=== PATIENT | female | born 1945 | race Caucasian/White ===

== ENCOUNTER 2017-04-13 13:56 | Emergency (ER) | payer OTHER ==
[2017-04-13 14:05] VITALS: TEMP 97.9
--- NOTE | 2017-04-13 15:07 | EDPHY ---
H & P Stated Complaint: CHI - Hit Head on Coffee Table - Personal History Current Tetanus Diphtheria and Acellular Pertussis (TDAP): Yes - Medical/Surgical History Hx Asthma: No Hx Chronic Respiratory Disease: No Hx Diabetes: No Hx Cardiac Disease: No Hx Renal Disease: No Hx Cirrhosis: Yes Hx Alcoholism: Yes Hx HIV/AIDS: No Hx Splenectomy or Spleen Trauma: No Other PMH: Pelvis Fx, DVT, ETOH Abuse and Liver Problems - Social History Smoking Status: Never smoked <Khoa Beard - Last Filed: 04/13/17 15:06> Source: Patient <Logan Graff - Last Filed: 04/13/17 20:56> HPI/ROS: HPI CHIEF COMPLAINT: Head trauma, vomiting HISTORY OF PRESENT ILLNESS: This patient is 71-year-old female she has a history of alcoholism, she presents emergency room by private vehicle for nausea vomiting. Patient reports on Sunday she struck her head on the coffee table. Since then she has had nausea. Intermittent vomiting. Denies any headache or neck pain. Denies chest pain or shortness of breath. She hit the front left side of her head. Unclear if she had LOC. Currently she denies any chest pain or shortness of breath or headache or neck pain. Main complaint nausea. Past Medical History: Alcoholism Past Surgical History: No recent surgery Social History: Lives locally, daily alcohol use Family History: Noncontributory ROS REVIEW OF SYSTEMS: A comprehensive 10 point review of systems is otherwise negative aside from elements mentioned in the history of present illness. Exam Constitutional appears well nontoxic, triage nursing summary reviewed, vital signs reviewed, awake/alert. Eyes normal conjunctivae and sclera, EOMI, PERRLA. HENT head/neck: Left forehead hematoma, moist mucus membranes, no epistaxis, neck supple/ no meningismus, no raccoon eyes. Respiratory clear to auscultation bilaterally, normal breath sounds, no respiratory distress, no wheezing. Cardiovascular rate normal, regular rhythm, no murmur, no edema, distal pulses normal. Gastrointestinal soft, non-tender, no rebound, no guarding, normal bowel sounds, no distension, no pulsatile mass. Genitourinary no CVA tenderness. Musculoskeletal no midline vertebral tenderness, full range of motion, no calf swelling, no tenderness of extremities, no meningismus, good pulses, neurovascularly intact. Skin pink, warm, & dry, no rash, skin atraumatic. Neurologic awake, alert and oriented x 3, AAOx3, moves all 4 extremities equally, motor intact, sensory intact, CN II-XII intact, normal cerebellar, normal vision, normal speech. Psychiatric normal mood/affect. Heme/Lymph/Immune no lymphadenopathy. Differential Diagnosis: Includes but is not limited to in a particular order intracranial bleed, subdural, epidural, traumatic subarachnoid, skull fracture Medical Decision Making: Plan for this patient IV establishment IV fluid bolus , 1 L, 4 mg IV Zofran, CT scan head without contrast rule out intracranial bleed Re-evaluation: CT scan head without contrast negative for acute traumatic injury. No bleed. Called to me by DR. Cayden Maza: I did re-evaluate this patient this time she is resting comfortably no acute distress. She is feeling much better after IV fluids and IV potassium. Her urinalysis just resulted. This does show UTI. I have I have ordered a urine culture. 1 g of Rocephin will be given. Additionally I will allow her to go home with Zofran, Keflex for UTI, potassium supplements. I do recommend she refrain from drinking alcohol. Her ultrasound does not show an acute gallbladder does show gallstones but no evidence of acute cholecystitis. Patient is feeling better and would like to go home. (Logan Graff) Constitutional: Initial Vital Signs Temperature (C) 36.6 C 04/13/17 13:58 Heart Rate 81 04/13/17 13:58 Respiratory Rate 18 04/13/17 13:58 O2 Sat (%) 94 04/13/17 13:58 O2 Delivery Mode Room Air Allergies/Adverse Reactions: No Known Allergies Allergy (Unverified 04/13/17 14:05) Home Medications: Medication Instructions Recorded Cephalexin [Keflex (*)] 500 mg PO TID #21 cap 04/13/17 Ondansetron HCl [Zofran] 4 mg PO Q4-6PRN PRN #10 tablet 04/13/17 Potassium Chloride [Klor-Con] 20 meq PO DAILY #3 packet 04/13/17 - Diagnostics Imaging Results: Imaging Impressions Head CT 04/13/17 15:13 Impression: 1. Cerebrovascular atherosclerosis. 2. No epidural or subdural hematoma. 3. No hemorrhage or mass effect. Findings and recommendations discussed with Emergency Department physician, Logan Graff MD, at 1606 hour, 04/13/2017. Final report concurs with initial preliminary interpretation. Abdomen Ultrasound 04/13/17 16:48 Impression: Cholelithiasis, without evidence for cholecystitis. Results called and discussed with Logan Graff M.D., on April 13, 2017 at 1740. - Data Points Laboratory Results: Laboratory Results 04/13/17 15:30 04/13/17 20:05 04/13/17 04/13/17 04/13/17 20:05 18:43 15:30 WBC RBC Hgb Hct MCV MCH MCHC RDW Plt Count MPV Neut % (Auto) Lymph % (Auto) [place] % (Auto) Eos % (Auto) Baso % (Auto) Nucleat RBC Rel Count Absolute Neuts (auto) Absolute Lymphs (auto) Absolute Monos (auto) Absolute Eos (auto) Absolute Basos (auto) Absolute Nucleated RBC Immature Gran % Immature Gran # Sodium 141 mEq/L mEq/L 138 mEq/L mEq/L (135-145) (135-145) Potassium 3.5 mEq/L mEq/L 2.9 mEq/L L mEq/L (3.5-5.2) (3.5-5.2) Chloride 102 mEq/L mEq/L 96 mEq/L L mEq/L (97-110) (97-110) Carbon Dioxide 29 mEq/l mEq/l 31 mEq/l mEq/l (22-31) (22-31) Anion Gap 10 mEq/L mEq/L 11 mEq/L mEq/L (8-16) (8-16) BUN 11 mg/dL mg/dL 13 mg/dL mg/dL (7-23) (7-23) Creatinine 0.6 mg/dL mg/dL 0.6 mg/dL mg/dL (0.6-1.0) (0.6-1.0) Estimated GFR > 60 > 60 Glucose 106 mg/dL H mg/dL 115 mg/dL H mg/dL (70-100) (70-100) Calcium 9.0 mg/dL mg/dL 9.4 mg/dL mg/dL (8.5-10.4) (8.5-10.4) Total Bilirubin 5.6 mg/dL H mg/dL (0.1-1.4) Conjugated Bilirubin 1.1 mg/dL H mg/dL (0.0-0.5) Unconjugated Bilirubin 4.5 mg/dL H mg/dL (0.0-1.1) AST 86 IU/L H IU/L (14-46) ALT 40 IU/L IU/L (9-52) Alkaline Phosphatase 82 IU/L IU/L (38-126) Total Protein 6.1 g/dL L g/dL (6.3-8.2) Albumin 3.5 g/dL g/dL (3.5-5.0) Lipase 111 IU/L IU/L (23-300) Urine Color JAYDEN Urine Appearance HAZY Urine pH 6.0 (5.0-7.5) Ur Specific [place] 1.028 (1.002-1.030) Urine Protein 2+ H (NEGATIVE) Urine Ketones TRACE H (NEGATIVE) Urine Blood 1+ H (NEGATIVE) Urine Nitrate NEGATIVE (NEGATIVE) Urine Bilirubin NEGATIVE (NEGATIVE) Urine Urobilinogen 4.0 EU H EU (0.2-1.0) Ur Leukocyte Esterase TRACE H (NEGATIVE) Urine RBC 25-50 /hpf H /hpf (0-3) Urine WBC 15-25 /hpf H /hpf (0-3) Ur Epithelial Cells 2+ /lpf H /lpf (NONE-1+) Urine Mucus 2+ /lpf H /lpf (NONE-1+) Urine Glucose NEGATIVE (NEGATIVE) 04/13/17 15:30 WBC 5.13 10^3/uL 10^3/uL (3.80-9.50) RBC 4.18 10^6/uL 10^6/uL (4.18-5.33) Hgb 13.6 g/dL g/dL (12.6-16.3) Hct 37.9 % L % (38.0-47.0) MCV 90.7 fL fL (81.5-99.8) MCH 32.5 pg pg (27.9-34.1) MCHC 35.9 g/dL g/dL (32.4-36.7) RDW 14.8 % % (11.5-15.2) Plt Count 80 10^3/uL L 10^3/uL (150-400) MPV 10.7 fL fL (8.7-11.7) Neut % (Auto) 56.1 % % (39.3-74.2) Lymph % (Auto) 31.2 % % (15.0-45.0) Bennett % (Auto) 11.5 % % (4.5-13.0) Eos % (Auto) 0.4 % L % (0.6-7.6) Baso % (Auto) 0.6 % % (0.3-1.7) Nucleat RBC Rel Count 0.0 % % (0.0-0.2) Absolute Neuts (auto) 2.88 10^3/uL 10^3/uL (1.70-6.50) Absolute Lymphs (auto) 1.60 10^3/uL 10^3/uL (1.00-3.00) Absolute Monos (auto) 0.59 10^3/uL 10^3/uL (0.30-0.80) Absolute Eos (auto) 0.02 10^3/uL L 10^3/uL (0.03-0.40) Absolute Basos (auto) 0.03 10^3/uL 10^3/uL (0.02-0.10) Absolute Nucleated RBC 0.00 10^3/uL 10^3/uL (0-0.01) Immature Gran % 0.2 % % (0.0-1.1) Immature Gran # 0.01 10^3/uL 10^3/uL (0.00-0.10) Sodium Potassium Chloride Carbon Dioxide Anion Gap BUN Creatinine Estimated GFR Glucose Calcium Total Bilirubin Conjugated Bilirubin Unconjugated Bilirubin AST ALT Alkaline Phosphatase Total Protein Albumin Lipase Urine Color Urine Appearance Urine pH Ur Specific [place] Urine Protein Urine Ketones Urine Blood Urine Nitrate Urine Bilirubin Urine Urobilinogen Ur Leukocyte Esterase Urine RBC Urine WBC Ur Epithelial Cells Urine Mucus Urine Glucose Medications Given: Discontinued Medications Sodium Chloride (Ns) 1,000 mls @ 0 mls/hr IV EDNOW ONE; Wide Open PRN Reason: Protocol Stop: 04/13/17 15:14 Last Admin: 04/13/17 15:28 Dose: 1,000 mls Potassium Chloride (Potassium Cl 20 Meq (Premix)) 100 mls @ 50 mls/hr IV EDNOW ONE Stop: 04/13/17 18:04 Last Admin: 01/19/18 16:23 Dose: 100 mls Ceftriaxone Sodium 1 gm/ (Sterile Water) 10 mls @ 150 mls/hr IV EDNOW ONE PRN Reason: Protocol Stop: 04/13/17 19:48 Last Admin: 04/13/17 20:38 Dose: 10 mls Ondansetron HCl (Zofran) 4 mg IVP EDNOW ONE Stop: 04/13/17 15:14 Last Admin: 04/13/17 15:29 Dose: 4 mg Potassium Chloride (Klor Packets) 40 meq PO EDNOW ONE Stop: 04/13/17 16:06 Last Admin: 04/13/17 16:21 Dose: 40 meq Departure <Khoa Beard - Last Filed: 04/13/17 15:06> <Logan Graff - Last Filed: 04/13/17 20:56> - Departure Disposition: Home, Routine, Self-Care Clinical Impression: Hypokalemia Vomiting Qualifiers: Vomiting type: unspecified Vomiting Intractability: non-intractable Nausea presence: with nausea Qualified Code(s): R11.2 - Nausea with vomiting, unspecified Head injury Qualifiers: Encounter type: initial encounter Qualified Code(s): S09.90XA - Unspecified injury of head, initial encounter UTI (urinary tract infection) Qualifiers: Urinary tract infection type: acute cystitis Hematuria presence: with hematuria Qualified Code(s): N30.01 - Acute cystitis with hematuria Condition: Good Instructions: Concussion (ED), Head Injury (ED), Acute Nausea and Vomiting (ED) Additional Instructions: 1. [place] diet next 24-48 hours. 2. Stay well-hydrated. 3. Zofran for nausea. 4. Your potassium was slightly low. Take supplemental potassium for the next few days. Prescription provided. 5. Return emergency room if you have worsening symptoms questions or concerns. Referrals: Greg Hendricks MD [Primary Care Provider] - As per Instructions Prescriptions: Cephalexin [Keflex (*)] 500 mg PO TID #21 cap Ondansetron HCl [Zofran] 4 mg PO Q4-6PRN PRN #10 tablet PRN Reason: Nausea/Vomiting, Use 1st Potassium Chloride [Klor-Con] 20 meq PO DAILY #3 packet
[2017-04-13] MEDS ORDERED: ONDANSETRON 4 MG/2 ML VIAL IVP ONE (15:13)
[2017-04-13] MEDS ORDERED: NS 1,000 ML IV ONE (15:13)
[2017-04-13 15:40] LABS: PLATELET COUNT 80 10^3/uL (150-400)
[2017-04-13] MEDS ORDERED: POTASSIUM Cl (KCl) 100 ML IV ONE (16:05)
[2017-04-13] MEDS ORDERED: POTASSIUM CL 20 MEQ PKT PO ONE (16:05)
--- NOTE | 2017-04-13 17:07 | ASMTCAGE ---
CAGE Do you feel you ought to Answers: Yes cut down on your drinking or drug use? Do people annoy you by Answers: No criticizing your drinking or drug use? Do you feel guilty about Answers: Yes your drinking or drug use? Do you drink or use drugs Answers: Yes first thing in the morning ([employer])? Date Signed: 04/13/2017 05:07 PM Electronically Signed By:Sheldon Gonzales LCSW
--- NOTE | 2017-04-13 17:10 | ASMTCMCOM ---
CM Note CM Note Notes: Pt seen as result of CAGE. Pt was cooperative and friendly. She stated that she recently completed 90 days of sobriety after treatment at [facility]. She went on an alcohol binge on Sunday the and Sunday the . She indicated that she has a therapist she sees once a week and her doctor is working on addressing her anxiety medications. She reported that her anxiety is very high. Discharge status unknown at this time. Date Signed: 04/13/2017 05:10 PM Electronically Signed By:Sheldon Gonzales LCSW
[2017-04-13] MEDS ORDERED: cefTRIAXone 1 GM in STERILE WATER INJ 10 ML IV ONE (19:45)
[2017-04-13 20:42] VITALS: BP 152/100; PULSE 77; RESP 16; O2SAT 93
== END 2017-04-13 21:07 | disposition home or self-care (01) ==
DX: S09.90XA Unspecified injury of head, initial encounter (principal); E87.6 Hypokalemia; N30.01 Acute cystitis with hematuria; B96.89 Other specified bacterial agents as the cause of diseases classified elsewhere; E86.9 Volume depletion, unspecified; W22.09XA Striking against other stationary object, initial encounter; Y99.8 Other external cause status
CPT/HCPCS: 96374; J0696

== ENCOUNTER 2017-04-28 12:54 | Emergency (ER) | payer OTHER ==
[2017-04-28 13:05] VITALS: TEMP 98.1
[2017-04-28] MEDS ORDERED: NS 1,000 ML IV ONE (13:31)
--- NOTE | 2017-04-28 13:35 | EDPHY ---
H & P Stated Complaint: head inj 04/13 cat scan neg continued sob/nausea/shaky/confused Time Seen by Provider: 04/28/17 13:07 HPI/ROS: Chief Complaint: Confusion, fatigue HPI: A 71-year-old woman presenting with intermittent confusion fatigue after hitting her head on the of this month. Patient was seen 2 days after the injury here and had a CT scan of the head which was negative. Since that time she has been having some waxing and waning confusion with some nausea and general malaise. Her son went to pick her up today and noted that she seemed quite confused. She does have a long history of alcohol use and does admit that she has been drinking. Last drink was 6 o'clock this morning when she drank rum. She states she does not drink every day but does not recall if she drank yesterday and also does not recall if she drank the day before that. She is currently on disability from her work secondary to her head injury. She went to Urgent Care today and was sent here for further evaluation. She has a mild headache. No vision or hearing changes. Intermittent loss of memory and which she does not recall some recent days. No fevers or chills. No cough. No abdominal pain. No urinary urgency or frequency. ROS: 10 point Review of Systems is negative except as noted in the HPI. PMH: Alcoholism Social History: No smoking, history of heavy alcohol use Family History: non-contributory Physical Exam: Gen: Awake, Alert, No Distress HEENT: Nose: no rhinorrhea Eyes: PERRLA, EOMI Mouth: Moist mucosa dry mucosa Neck: Supple, no JVD Chest: nontender, lungs clear to auscultation Heart: S1, S2 normal, no murmur Abd: Soft, non-tender, no guarding Back: no CVA tenderness, no midline tenderness Ext: no edema, non-tender Skin: no rash Neuro: CN II-XII intact, Sensation grossly intact, Strength 5/5 in bilateral upper and lower extremities - Personal History Current Tetanus/Diphtheria Vaccine: Yes - Medical/Surgical History Hx Asthma: No Hx Chronic Respiratory Disease: No Hx Diabetes: No Hx Cardiac Disease: No Hx Renal Disease: No Hx Cirrhosis: Yes Hx Alcoholism: Yes Hx HIV/AIDS: No Hx Splenectomy or Spleen Trauma: No Other PMH: Pelvis Fx, DVT, ETOH Abuse and Liver Problems - Social History Smoking Status: Never smoked Constitutional: Initial Vital Signs Temperature (C) 36.7 C 04/28/17 13:01 Heart Rate 76 04/28/17 13:01 Respiratory Rate 18 04/28/17 13:01 Blood Pressure 159/77 H 04/28/17 13:01 O2 Sat (%) 96 04/28/17 13:01 O2 Delivery Mode Room Air Allergies/Adverse Reactions: No Known Allergies Allergy (Verified 04/28/17 13:01) Home Medications: Medication Instructions Recorded NK [No Known Home Meds] 04/28/17 Medical Decision Making ED Course/Re-evaluation: 71-year-old woman presenting with confusion. She did have a head injury 2 weeks ago after falling hitting or hit her coffee table however she had a normal CT scan 2 days after the injury. Her symptoms have been waxing waning in persistent. She has continued drink alcohol and she has an alcohol level 175 here. Given that 2 days post range she had a normal CT scan I think it is extremely unlikely that she has a developing intracranial bleed or mass effect. Symptoms are more likely secondary to her chronic alcohol use and a possible Wernicke encephalopathy. The patient has struggled with sobriety and has been in rehab facilities multiple times in the past. She does have an elevation of her bilirubin which was up 2 days on her previous visit but since went down again. I have also noted that in 2008 she had an admission for liver failure at that time secondary to her chronic alcohol use. She is not particularly jaundiced or tear today. She is intoxicated which is contributing to her confusion. There is no obvious source of infection. Urinalysis is unremarkable. I have had a long talk with both her and her son that I think that her symptoms are possibly post concussive but more likely can be attributed to her chronic alcohol abuse and a likely were neck is encephalopathy. Case management has been involved in provided her with resources for alcohol treatment. Patient will need follow-up as an outpatient with her primary care physician. No findings indicating admission to the hospital at this time. She will return for any concerns. - Data Points Laboratory Results: Laboratory Results 04/28/17 13:36 04/28/17 13:36 04/28/17 04/28/17 04/28/17 14:52 13:36 13:36 WBC 3.26 10^3/uL L 10^3/uL (3.80-9.50) RBC 4.26 10^6/uL 10^6/uL (4.18-5.33) Hgb 13.9 g/dL g/dL (12.6-16.3) Hct 39.1 % % (38.0-47.0) MCV 91.8 fL fL (81.5-99.8) MCH 32.6 pg pg (27.9-34.1) MCHC 35.5 g/dL g/dL (32.4-36.7) RDW 15.0 % % (11.5-15.2) Plt Count 76 10^3/uL L 10^3/uL (150-400) MPV 10.4 fL fL (8.7-11.7) Neut % (Auto) 54.0 % % (39.3-74.2) Lymph % (Auto) 36.2 % % (15.0-45.0) [place] % (Auto) 7.4 % % (4.5-13.0) Eos % (Auto) 0.6 % % (0.6-7.6) Baso % (Auto) 0.9 % % (0.3-1.7) Nucleat RBC Rel Count 0.0 % % (0.0-0.2) Absolute Neuts (auto) 1.76 10^3/uL 10^3/uL (1.70-6.50) Absolute Lymphs (auto) 1.18 10^3/uL 10^3/uL (1.00-3.00) Absolute Monos (auto) 0.24 10^3/uL L 10^3/uL (0.30-0.80) Absolute Eos (auto) 0.02 10^3/uL L 10^3/uL (0.03-0.40) Absolute Basos (auto) 0.03 10^3/uL 10^3/uL (0.02-0.10) Absolute Nucleated RBC 0.00 10^3/uL 10^3/uL (0-0.01) Immature Gran % 0.9 % % (0.0-1.1) Immature Gran # 0.03 10^3/uL 10^3/uL (0.00-0.10) Sodium 145 mEq/L mEq/L (135-145) Potassium 3.7 mEq/L mEq/L (3.5-5.2) Chloride 104 mEq/L mEq/L (97-110) Carbon Dioxide 23 mEq/l mEq/l (22-31) Anion Gap 18 mEq/L H mEq/L (8-16) BUN 9 mg/dL mg/dL (7-23) Creatinine 0.5 mg/dL L mg/dL (0.6-1.0) Estimated GFR > 60 Glucose 84 mg/dL mg/dL (70-100) Calcium 9.5 mg/dL mg/dL (8.5-10.4) Total Bilirubin 4.1 mg/dL H mg/dL (0.1-1.4) Conjugated Bilirubin 0.7 mg/dL H mg/dL (0.0-0.5) Unconjugated Bilirubin 3.4 mg/dL H mg/dL (0.0-1.1) AST 63 IU/L H IU/L (14-46) ALT 42 IU/L IU/L (9-52) Alkaline Phosphatase 100 IU/L IU/L (38-126) Total Protein 6.1 g/dL L g/dL (6.3-8.2) Albumin 3.7 g/dL g/dL (3.5-5.0) Urine Color Pending Urine Appearance Pending Urine pH Pending Ur Specific [place] Pending Urine Protein Pending Urine Ketones Pending Urine Blood Pending Urine Nitrate Pending Urine Bilirubin Pending Urine Urobilinogen Pending Ur Leukocyte Esterase Pending Urine Glucose Pending Ethyl Alcohol 175 mg/dL H mg/dL (0-10) Medications Given: Discontinued Medications Sodium Chloride (Ns) 1,000 mls @ 0 mls/hr IV ONCE ONE; Wide Open PRN Reason: Protocol Stop: 04/28/17 13:32 Last Admin: 04/28/17 13:43 Dose: 1,000 mls Departure - Departure Disposition: Home, Routine, Self-Care Clinical Impression: Confusion, Alcohol dependence, Wernicke encephalopathy Condition: Good Instructions: Alcohol Dependence (ED), Encephalopathy (DC) Additional Instructions: Please seek help to stop drinking alcohol. Follow up with primary care physician in 2-3 days for further evaluation. Return emergency department for increasing fever, worsening confusion, uncontrolled nausea vomiting, or any other concerns. Referrals: Greg Hendricks MD [Primary Care Provider] - As per Instructions
[2017-04-28 13:49] LABS: PLATELET COUNT 76 10^3/uL (150-400)
--- NOTE | 2017-04-28 14:28 | ASMTLACE ---
SARAH Comorbidities - select Answers: History of falls all that apply Moderate or severe liver or renal disease # of Emergency department Answers: 1-2 visits in the last 6 months Social determinants Answers: History of substance abuse (ETHO, street drugs, prescription drugs, etc.) Score: 11 Date Signed: 04/28/2017 02:28 PM Electronically Signed By:Meaghan Ricketts RN
[2017-04-28 14:42] VITALS: BP 145/82; PULSE 80; RESP 15; O2SAT 92
--- NOTE | 2017-04-28 14:43 | ASMTCMCOM ---
CM Note TORIBIO Note Notes: Chart review and met with patient who presents to the ER today with her adult son. patient C/O confusion and ETOH relapse. History of cirrhosis and alcoholism Patient states that she went to [facility] IP rehabilitation in October and had close to 90 days of sobriety before relapsing in February. Patient was seen in this ER on 04/13/17 after falling and hitting her head on a coffee table. Today, she tells me her confusion and memory issues are concerning to her. When asked what she thinks may help with that she states, "I should stop drinking". I spent time with patient discussing what was "working" for her during her period of sobriety following her IP stay at [facility]. Patient states that she was going to AA meetings daily, had a therapist that she saw on a regular basis, and was exercising. We talked about patient's history of liver disease and her confusion being related-metabolism of alcohol. Patient does verbalize understanding of this. I have asked her if she would like to go to "detox" or consider returning to [facility]. She denies desire for this. "I just don't want to feel like this". I have encouraged patient to stop drinking, get to an AA meeting, reach out to her counselor (patient tells me she can contact her on the weekend), and to follow up with her PCP, Dr. Cassie Hendricks at [facility] . I have left a VM with Dr. Hendricks for follow up and care coordination Date Signed: 04/28/2017 02:42 PM Electronically Signed By:Meaghan Ricketts RN
== END 2017-04-28 15:43 | disposition home or self-care (01) ==
PROC: 3E0337Z Introduction of Electrolytic and Water Balance Substance into Peripheral Vein, Percutaneous Approach (ICD-10-PCS; principal; 2017-04-28)
DX: R41.0 Disorientation, unspecified (principal); F10.229 Alcohol dependence with intoxication, unspecified; E51.2 Wernicke's encephalopathy; E86.9 Volume depletion, unspecified
CPT/HCPCS: G0480

== ENCOUNTER 2017-08-07 16:28 | Emergency (ER) | payer OTHER ==
[2017-08-07] MEDS ORDERED: NS 1,000 ML IV ONE (16:47)
[2017-08-07] MEDS ORDERED: chlordiazePOXIDE 25 MG CAP PO ONE (16:48)
[2017-08-07] MEDS ORDERED: LORazepam 1 MG TAB PO ONE (16:48)
[2017-08-07] MEDS ORDERED: ONDANSETRON 4 MG/2 ML VIAL IVP ONE (16:49)
--- NOTE | 2017-08-07 16:52 | EDPHY ---
H & P Stated Complaint: detox from ETOH Time Seen by Provider: 08/07/17 16:48 HPI/ROS: HPI: This is a 72-year-old female who presents with Chief Complaint: Alcohol withdrawal Location: body Quality: alcohol withdrawal Duration:2 days Signs and Symptoms: no fever, + nausea, + vomiting, no hematemesis, no blood in stool, no abdominal bloating, no diarrhea, no back pain, no urinary symptoms, no testicular/groin pain, no indigestion, no chest pain, no shortness of breath Timing: worsening Severity: moderate Context: Patient presents accompanied by her AA sponsor asking for symptomatic care as she is going through alcohol withdrawal. She reports that she feels tremulous and anxious accompanied by nausea and intermittent vomiting. Patient reports that she has been sober for 90 days in the recent past. She was recently admitted for inpatient detox November-December of last year. Her last drink was Sunday evening. She normally drinks 4-5 gin drinks daily. Patient reports that she has never had alcohol withdrawal seizures. After discussing the patient's options with her and her AA sponsor, patient is willing to be discharged to the [facility] for further detox and rehab. She denies any suicidal ideation, homicidal ideation, hallucinations. She has no abdominal pain/fever/ urinary symptoms. No history of abdominal surgery. Modifying Factors: None Comment: ROS: see HPI Constitutional: No fever, no chills, no weight loss Eyes: No blurred vision Respiratory: No shortness of breath, no cough Cardiovascular: No chest pain, no palpitations Gastrointestinal: + nausea, + vomiting, no diarrhea, no hematemesis, no blood in stool Genitourinary: No dysuria, no blood in urine Extremities: No myalgias, no edema Neurologic: No weakness, no numbness Skin: No rashes, no petechiae Hematologic: No bruising, no bleeding MEDICAL/SURGICAL/SOCIAL HISTORY: Medical history: Pelvis Fx, DVT, ETOH Abuse and Liver Problems, anxiety and depression Surgical history: Denies Social history: Retired. Lives alone. Family history noncontributory. CONSTITUTIONAL: Petite elderly polite and cooperative white female, awake and alert, no obvious distress HEENT: Atraumatic and normocephalic, PERRL, EOMI. Nares patent; no rhinorrhea; no nasal mucosal edema. Tympanic membranes clear. Oropharynx clear, no exudate and moist pink mucosa. Airway patent. No lymphadenopathy. No meningismus. Cardiovascular: Normal S1/S2, regular rate, regular rhythm, without murmur rub or gallop. PULMONARY/CHEST: Symmetrical and nontender. Clear to auscultation bilaterally. Good air movement. No accessory muscle usage. ABDOMEN: Soft, nondistended, nontender, no rebound, no guarding, no peritoneal signs, no masses or organomegaly. No CVAT. EXTREMITIES: 2/2 pulses, strength 5/5, no deformities, no clubbing, no cyanosis or edema. NEUROLOGICAL: no focal neuro deficits. GCS 15. Hand tremors noted. SKIN: Warm and dry, no erythema. no rash. Good capillary refill. Source: Patient, Family (AA sponsor) Exam Limitations: No limitations - Personal History Current Tetanus/Diphtheria Vaccine: Unsure Current Tetanus Diphtheria and Acellular Pertussis (TDAP): Unsure - Medical/Surgical History Hx Asthma: No Hx Chronic Respiratory Disease: No Hx Diabetes: No Hx Cardiac Disease: No Hx Renal Disease: No Hx Cirrhosis: Yes Hx Alcoholism: Yes Hx HIV/AIDS: No Hx Splenectomy or Spleen Trauma: No Other PMH: Pelvis Fx, DVT, ETOH Abuse and Liver Problems - Social History Smoking Status: Never smoked Constitutional: Initial Vital Signs Temperature (C) 36.8 C 08/07/17 16:38 Heart Rate 80 08/07/17 16:38 Respiratory Rate 16 08/07/17 16:38 Blood Pressure 143/100 H 08/07/17 16:38 O2 Sat (%) 92 08/07/17 16:38 O2 Delivery Mode Room Air Allergies/Adverse Reactions: No Known Allergies Allergy (Verified 08/07/17 16:37) Home Medications: Medication Instructions Recorded Multivitamin (*) 08/07/17 Pristiq 08/07/17 Medical Decision Making ED Course/Re-evaluation: Vital signs stable. CIWA upon arrival=16 Patient will be given 1 L normal saline, IV Zofran, IV Ativan 1 mg, p.o. Librium 50 mg Abdomen is soft and nontender. Doubt surgical process. Does not meet M1 hold or Detainer criteria. 181: Reassessed patient who reports that she feels considerably improved. She does note that the Ativan made her feel"a bit loopy." She is ambulatory without assistance. Repeat CIWA=5. Her AA sponsor is at her bedside. Plan is for her to be discharged to the [facility] with Librium prepack. No signs of alcohol withdrawal seizures/delirium Vital signs improved at discharge. This patient was seen under the supervision of my secondary supervising physician. I evaluated care for this patient independently. Differential Diagnosis: Differential diagnosis includes but is not limited to electrolyte imbalance, alcohol withdrawal, alcohol delirium, delirium tremens. - Data Points Medications Given: Discontinued Medications Chlordiazepoxide (Librium 25 Mg Prepack#6) 1 btl TAKEHOME EDNOW ONE Stop: 08/07/17 18:17 Last Admin: 08/07/17 18:29 Dose: 1 btl Chlordiazepoxide HCl (Librium) 50 mg PO EDNOW ONE Stop: 08/07/17 16:49 Last Admin: 08/07/17 17:09 Dose: 50 mg Sodium Chloride (Ns) 1,000 mls @ 0 mls/hr IV EDNOW ONE; Wide Open PRN Reason: Protocol Stop: 08/07/17 16:48 Last Admin: 08/07/17 17:03 Dose: 1,000 mls Lorazepam (Ativan) 1 mg PO EDNOW ONE Stop: 08/07/17 16:49 Last Admin: 08/07/17 17:09 Dose: Not Given Lorazepam (Ativan Injection) 1 mg IVP EDNOW ONE Stop: 08/07/17 17:09 Last Admin: 08/07/17 17:09 Dose: 1 mg Ondansetron HCl (Zofran) 4 mg IVP EDNOW ONE Stop: 08/07/17 16:50 Last Admin: 08/07/17 17:03 Dose: 4 mg Departure - Departure Disposition: Home, Routine, Self-Care Clinical Impression: Alcohol abuse Alcohol withdrawal Qualifiers: Complication of substance-induced condition: uncomplicated Qualified Code(s): F10.230 - Alcohol dependence with withdrawal, uncomplicated Condition: Good Instructions: Chlordiazepoxide (By mouth), Alcohol Withdrawal (ED), Alcohol Dependence (ED) Additional Instructions: [facility] You will be given Librium to take to control your alcohol withdrawal symptoms. Please refrain from drinking alcohol. Referrals: [facility] Detox 24 Hours [Outside] - As per Instructions Cassie Sweeney [Registered Nurse] - Follow Up Only If Needed
[2017-08-07] MEDS ORDERED: LORazepam 2 MG/ML INJ ONE (17:08)
[2017-08-07] MEDS ORDERED: LORazepam 2 MG/ML INJ IVP ONE (17:08)
[2017-08-07] MEDS ORDERED: CHLORDIAZEPOXIDE 25MG PREPK#6 BTL TAKEHOME ONE (18:16)
[2017-08-07 18:18] VITALS: BP 121/83
== END 2017-08-07 18:35 | disposition home or self-care (01) ==
DX: F10.230 Alcohol dependence with withdrawal, uncomplicated (principal); E86.9 Volume depletion, unspecified
CPT/HCPCS: 96374; J2060; J2405

== ENCOUNTER 2018-01-10 14:07 | Inpatient (IN) | payer OTHER ==
--- NOTE | 2018-01-10 14:59 | EDPHY ---
HPI/HX/ROS/PE/MDM Narrative: CHIEF COMPLAINT: Nausea, vomiting, alcohol withdrawal. HISTORY OF PRESENT ILLNESS: This patient is a 72 year old female with history of alcoholism and cirrhosis. She complains of nausea and vomiting ongoing since 8am on Sunday morning. On Sunday and Sunday, she was feeling anxious and manic which often precedes symptoms of alcohol withdrawal, and she believes her symptoms over the past two days are due to this. Her last drink was Sunday. She had stopped going to AA and decided to stop drinking again when she ran out of alcohol at home. Since Sunday, she has been vomiting frequently. She is tremulous. She denies hematemesis. She denies seizure activity. She denies history of pancreatitis or alcoholic ketoacidosis. She states her therapist wants to help her get to [facility] [facility], but she is unsure whether this is the best place for her at this time. No fever, chills, chest pain, shortness of breath, palpitations, diarrhea, urinary complaints, headache, lightheadedness. REVIEW OF SYSTEMS: A comprehensive 10 system review of systems is otherwise negative aside from elements mentioned in the history of present illness and medical decision making. PAST MEDICAL HISTORY: Alcoholic cirrhosis. History of DVT. SOCIAL HISTORY: History of alcoholism. Nonsmoker. No illicit drug use. VITAL SIGNS: Reviewed by me. Hypertensive at triage. 171/115 during my interview. GENERAL: Well-developed, well-nourished, resting comfortably in no respiratory distress. HEENT: Atraumatic. Eyes: Scleral icterus, no injection. Mouth: dry mucous membranes, dry tongue. No erythema or lesions. Neck: supple with no adenopathy. LUNGS: Clear to auscultation bilaterally, no wheezes, rhonchi or rales. CARDIAC: Tachycardia, no rubs, murmurs or gallops. Appears to be sinus rhythm on the monitor. ABDOMEN: Soft, nontender, nondistended, bowel sounds normal. BACK: No CVA tenderness. EXTREMITIES: No trauma. No edema. Range of motion is normal throughout. NEURO: Alert and oriented, grossly nonfocal. SKIN: Spider hemangioma. Warm and dry, no rash. PSYCHIATRIC: Normal mentation, no agitation. Portions of this note were transcribed by a medical insurance biller. I personally performed a history, physical exam, medical decision making, and confirmed accuracy of information the transcribed note. ED Course: 72 y/o female with history of alcoholism and cirrhosis presents with nausea and vomiting. She is mildly tremulous on exam and has scleral icterus, dry mucous membranes. IV established. Plan for labs including CBC, chemistries, coag, liver , lipase, Mg. Patient received Ativan 1 mg bolus x2. This controlled her hypertension and tremors quite well. Heart rate trended downward into the 90s. LFTs elevated. K+ elevated. Plan for repeat chemistries following fluid administration. Patient looks quite well. She is no longer tremors. She is feeling better. She has not vomited while she is here. I will ask case management to intervene with respect to the patient's disposition. 18:05 Case management has consulted with the patient. Patient's sister is currently staying with her and is a nurse. The sister will come to pick the patient up. If the sister is comfortable, plan to d/c patient home with [facility] prepack. She agrees to discuss returning to [facility] with her therapist tomorrow. Patient requests Zofran as well for nausea relief. I will provide this as well. Patient is noted to becoming slightly more tachycardic. On the monitor she is somewhat irregular and has heart rate fluctuating from the upper 90s to low 110s. Repeat EKG ordered 12-LEAD EKG: Please see the full report in [facility]. My interpretation: Atrial fibrillation. Patient denies history of atrial fibrillation. She does have a pulmonary embolism in the past. Given her newly diagnosed atrial fibrillation in the setting of alcohol withdrawal, and significant alcohol cirrhosis with an INR of 1.5, patient will be admitted to the hospital for further stabilization. 18:51 Consulted with hospitalist service. Plan to admit for new onset afib. Dr. Manley accepts admission. MDM: Differential diagnoses for the patient's symptom complex was considered including but not limited to alcohol withdrawal, alcohol withdrawal seizures, benzodiazepine withdrawal, sinus tachycardia, arrhythmia, atrial fibrillation, atrial flutter, holiday heart, dehydration, cirrhosis. - Data Points Laboratory Results: Laboratory Results 01/10/18 15:10 01/10/18 17:41 01/10/18 01/10/18 01/10/18 17:41 17:40 15:20 WBC RBC Hgb Hct MCV MCH MCHC RDW Plt Count MPV Neut % (Auto) Lymph % (Auto) [place] % (Auto) Eos % (Auto) Baso % (Auto) Nucleat RBC Rel Count Absolute Neuts (auto) Absolute Lymphs (auto) Absolute Monos (auto) Absolute Eos (auto) Absolute Basos (auto) Absolute Nucleated RBC Immature Gran % Immature Gran # PT 18.5 SEC H SEC (12.0-15.0) INR 1.53 H (0.83-1.16) Sodium 138 mEq/L mEq/L (135-145) Potassium 3.4 mEq/L mEq/L (3.3-5.0) Chloride 101 mEq/L mEq/L (97-110) Carbon Dioxide 29 mEq/l mEq/l (22-31) Anion Gap 8 mEq/L mEq/L (6-14) BUN 19 mg/dL mg/dL (7-23) Creatinine 0.5 mg/dL L mg/dL (0.6-1.0) Estimated GFR > 60 Glucose 118 mg/dL H mg/dL (70-100) Calcium 7.9 mg/dL L mg/dL (8.5-10.4) Magnesium Total Bilirubin Conjugated Bilirubin Unconjugated Bilirubin AST ALT Alkaline Phosphatase Troponin I 0.014 ng/mL ng/mL (0.000-0.034) Total Protein Albumin Lipase Specimen Hemolysis 01/10/18 01/10/18 15:20 15:10 WBC 4.83 10^3/uL 10^3/uL (3.80-9.50) RBC 4.55 10^6/uL 10^6/uL (4.18-5.33) Hgb 15.2 g/dL g/dL (12.6-16.3) Hct 42.7 % % (38.0-47.0) MCV 93.8 fL fL (81.5-99.8) MCH 33.4 pg pg (27.9-34.1) MCHC 35.6 g/dL g/dL (32.4-36.7) RDW 14.2 % % (11.5-15.2) Plt Count 57 10^3/uL L 10^3/uL (150-400) MPV 11.0 fL fL (8.7-11.7) Neut % (Auto) 83.9 % H % (39.3-74.2) Lymph % (Auto) 9.1 % L % (15.0-45.0) [place] % (Auto) 6.0 % % (4.5-13.0) Eos % (Auto) 0.0 % L % (0.6-7.6) Baso % (Auto) 0.4 % % (0.3-1.7) Nucleat RBC Rel Count 0.4 % H % (0.0-0.2) Absolute Neuts (auto) 4.05 10^3/uL 10^3/uL (1.70-6.50) Absolute Lymphs (auto) 0.44 10^3/uL L 10^3/uL (1.00-3.00) Absolute Monos (auto) 0.29 10^3/uL L 10^3/uL (0.30-0.80) Absolute Eos (auto) 0.00 10^3/uL L 10^3/uL (0.03-0.40) Absolute Basos (auto) 0.02 10^3/uL 10^3/uL (0.02-0.10) Absolute Nucleated RBC 0.02 10^3/uL H 10^3/uL (0-0.01) Immature Gran % 0.6 % % (0.0-1.1) Immature Gran # 0.03 10^3/uL 10^3/uL (0.00-0.10) PT INR Sodium 137 mEq/L mEq/L (135-145) Potassium 6.0 mEq/L H mEq/L (3.3-5.0) Chloride 97 mEq/L mEq/L (97-110) Carbon Dioxide 29 mEq/l mEq/l (22-31) Anion Gap 11 mEq/L mEq/L (6-14) BUN 18 mg/dL mg/dL (7-23) Creatinine 0.5 mg/dL L mg/dL (0.6-1.0) Estimated GFR > 60 Glucose 129 mg/dL H mg/dL (70-100) Calcium 8.7 mg/dL mg/dL (8.5-10.4) Magnesium 1.3 mg/dL L mg/dL (1.6-2.3) Total Bilirubin 8.2 mg/dL H mg/dL (0.1-1.4) Conjugated Bilirubin 1.6 mg/dL H mg/dL (0.0-0.5) Unconjugated Bilirubin 6.6 mg/dL H mg/dL (0.0-1.1) AST 191 IU/L H IU/L (14-46) ALT 57 IU/L H IU/L (9-52) Alkaline Phosphatase 89 IU/L IU/L (38-126) Troponin I Total Protein 7.1 g/dL g/dL (6.3-8.2) Albumin 4.2 g/dL g/dL (3.5-5.0) Lipase 158 IU/L IU/L (23-300) Specimen Hemolysis 146 Medications Given: Discontinued Medications Chlordiazepoxide (Librium 25 Mg Prepack#6) 1 btl TAKEHOME EDNOW ONE Stop: 01/10/18 18:10 Last Admin: 01/10/18 18:51 Dose: 1 btl Chlordiazepoxide HCl (Librium) 25 mg PO EDNOW ONE Stop: 01/10/18 16:56 Last Admin: 01/10/18 17:08 Dose: 25 mg Sodium Chloride (Ns) 1,000 mls @ 0 mls/hr IV ONCE ONE; Wide Open PRN Reason: Protocol Stop: 01/10/18 15:17 Last Admin: 01/10/18 15:23 Dose: 1,000 mls Sodium Chloride (Ns) 500 mls @ 1,000 mls/hr IV EDNOW ONE PRN Reason: Protocol Stop: 01/10/18 17:26 Last Admin: 01/10/18 17:07 Dose: 500 mls Lorazepam (Ativan Injection) 1 mg IVP EDNOW ONE Stop: 01/10/18 15:17 Last Admin: 01/10/18 15:24 Dose: 1 mg Lorazepam (Ativan Injection) 1 mg IVP EDNOW ONE Stop: 01/10/18 16:04 Last Admin: 01/10/18 16:06 Dose: 1 mg Magnesium Oxide (Magnesium Oxide) 400 mg PO ONCE ONE Stop: 01/10/18 23:49 Last Admin: 01/11/18 00:30 Dose: 400 mg Ondansetron HCl (Zofran) 4 mg IVP EDNOW ONE Stop: 01/10/18 15:17 Last Admin: 01/10/18 15:24 Dose: 4 mg Ondansetron HCl (Zofran Odt 4 Mg Prepack#2) 1 btl SINDY FERNÁNDEZ ONE Stop: 01/10/18 18:10 Last Admin: 01/10/18 18:50 Dose: 1 btl General Time Seen by Provider: 01/10/18 14:54 Initial Vital Signs: Initial Vital Signs Temperature (C) 36.8 C 01/10/18 14:18 Heart Rate 116 H 01/10/18 14:18 Respiratory Rate 20 01/10/18 14:18 Blood Pressure 168/136 H 01/10/18 14:18 O2 Sat (%) 93 01/10/18 14:18 O2 Delivery Mode Room Air O2 (L/minute) 2 Allergies/Adverse Reactions: No Known Allergies Allergy (Verified 01/10/18 14:17) Home Medications: Medication Instructions Recorded Herbals/Supplements -Info Only 1 ea PO DAILY 01/10/18 Multivitamins [Multivitamin (*)] 1 each PO DAILY 01/10/18 Departure - Departure Disposition: [facility] Inpatient Acute Clinical Impression: New onset atrial fibrillation Alcohol withdrawal Qualifiers: Complication of substance-induced condition: uncomplicated Qualified Code(s): F10.230 - Alcohol dependence with withdrawal, uncomplicated Nausea & vomiting Qualifiers: Vomiting type: unspecified Vomiting Intractability: non-intractable Qualified Code(s): R11.2 - Nausea with vomiting, unspecified Condition: Fair Report Scribed for: Kenna Ramos Report Scribed by: Glendy Muñoz Date of Report: 01/10/18 Time of Report: 15:26
[2018-01-10] MEDS ORDERED: NS 1,000 ML IV ONE (15:16)
[2018-01-10] MEDS ORDERED: LORazepam 2 MG/ML INJ IVP ONE ×2 (15:16→16:03)
[2018-01-10] MEDS ORDERED: ONDANSETRON 4 MG/2 ML VIAL IVP ONE (15:16)
[2018-01-10 15:44] LABS: INR 1.53 (0.83-1.16); PROTIME(PATIENT) 18.5 SEC (12.0-15.0)
[2018-01-10 15:53] LABS: PLATELET COUNT 57 10^3/uL (150-400)
[2018-01-10] MEDS ORDERED: chlordiazePOXIDE 25 MG CAP PO ONE (16:55)
[2018-01-10] MEDS ORDERED: NS 500 ML IV ONE (16:57)
[2018-01-10] MEDS ORDERED: CHLORDIAZEPOXIDE 25MG PREPK#6 BTL TAKEHOME ONE (18:09)
[2018-01-10] MEDS ORDERED: ONDANSETRON 4MG PREPACK#2 BTL TAKEHOME ONE (18:09)
[2018-01-10] MEDS ORDERED: ONDANSETRON 4 MG/2 ML VIAL IVP PRN (19:02)
[2018-01-10] MEDS ORDERED: ONDANSETRON DISINTEGRATING 4 MG TAB PO PRN (19:02)
[2018-01-10] MEDS ORDERED: ACETAMINOPHEN 325 MG TAB PO PRN (19:02)
[2018-01-10] MEDS ORDERED: FLUMAZENIL 0.5 MG/5 ML MDV IVP PRN (19:04)
[2018-01-10] MEDS ORDERED: LORazepam 2 MG/ML INJ IVP PRN (19:04)
--- NOTE | 2018-01-10 22:13 | PDGENHP ---
History and Physical - Chief Complaint nausea, vomiting - History of Present Illness 72yo F with history of etoh abuse complicated by cirrhosis who presents with nausea and non-bloody vomiting for the last day (since sunday). This has been associated with anxiety and feelings of nelly which are typical of etoh withdrawal for her. She had been drinking 5 drinks of gin per day for the last 10 months or so. She couldn't afford to buy more and ran out on Sunday. She denies any history of withdrawal seizures. In the ED, she was given 2mg of IV ativan and some librium. Initial plan was to discharge to home but she developed atrial fibrillation and was continuing to withdraw so decision was made to admit. Case discussed with ED physician Kenna Ramos. History Information - Allergies/Home Medication List Allergies/Adverse Reactions: No Known Allergies Allergy (Verified 01/10/18 14:17) Home Medications: Herbals/Supplements -Info Only 1 ea PO DAILY 01/10/18 [Last Taken 01/10/18] Multivitamins [Multivitamin (*)] 1 each PO DAILY 01/10/18 [Last Taken 01/10/18] I have personally reviewed and updated: family history, medical history, social history, surgical history - Past Medical History Additional medical history: etoh abuse, cirrhosis of the liver, alcoholic hepatitis, DVT in lower extremity - Surgical History Reports: no pertinent surgical hx - Family History Positive for: non-pertinent - Social History Smoking Status: Never smoked Alcohol Use: Heavy (5 drinks of gin daily) Drug Use: None Additional social history: Lives alone in [facility] in [place] Review of Systems Review of Systems: ROS: 10pt was reviewed & negative except for what was stated in HPI & below Physical Exam Physical Exam: Temp Pulse Resp BP Pulse Ox 36.6 C 101 H 8 L 130/86 H 92 01/10/18 20:40 01/10/18 20:40 01/10/18 20:40 01/10/18 20:40 01/10/18 20:40 Constitutional: not in pain Eyes: PERRL, anicteric sclera, EOMI Ears, Nose, Mouth, Throat: moist mucous membranes, hearing normal, ears appear normal, no oral mucosal ulcers, other (tongue fasciculations) Cardiovascular: irregularly irregular, tachycardia, No JVD, No edema Respiratory: no respiratory distress, no rales or rhonchi, clear to auscultation Gastrointestinal: normoactive bowel sounds, soft, non-tender abdomen, no palpable masses Genitourinary: no bladder fullness, no bladder tenderness Skin: warm, normal color, no rashes or abrasions, no fluctuance, no induration, No mottled Musculoskeletal: full muscle strength, no muscle tenderness, normal joint ROM, no joint effusions Neurologic: AAOx3 Psychiatric: not encephalopathic, anxious Lab Data & Imaging Review 01/10/18 15:10 01/10/18 17:41 WBC 4.83 10^3/uL (3.80-9.50) 01/10/18 15:10 RBC 4.55 10^6/uL (4.18-5.33) 01/10/18 15:10 Hgb 15.2 g/dL (12.6-16.3) 01/10/18 15:10 Hct 42.7 % (38.0-47.0) 01/10/18 15:10 MCV 93.8 fL (81.5-99.8) 01/10/18 15:10 MCH 33.4 pg (27.9-34.1) 01/10/18 15:10 MCHC 35.6 g/dL (32.4-36.7) 01/10/18 15:10 RDW 14.2 % (11.5-15.2) 01/10/18 15:10 Plt Count 57 10^3/uL (150-400) L 01/10/18 15:10 MPV 11.0 fL (8.7-11.7) 01/10/18 15:10 Neut % (Auto) 83.9 % (39.3-74.2) H 01/10/18 15:10 Lymph % (Auto) 9.1 % (15.0-45.0) L 01/10/18 15:10 [place] % (Auto) 6.0 % (4.5-13.0) 01/10/18 15:10 Eos % (Auto) 0.0 % (0.6-7.6) L 01/10/18 15:10 Baso % (Auto) 0.4 % (0.3-1.7) 01/10/18 15:10 Nucleat RBC Rel Count 0.4 % (0.0-0.2) H 01/10/18 15:10 Absolute Neuts (auto) 4.05 10^3/uL (1.70-6.50) 01/10/18 15:10 Absolute Lymphs (auto) 0.44 10^3/uL (1.00-3.00) L 01/10/18 15:10 Absolute Monos (auto) 0.29 10^3/uL (0.30-0.80) L 01/10/18 15:10 Absolute Eos (auto) 0.00 10^3/uL (0.03-0.40) L 01/10/18 15:10 Absolute Basos (auto) 0.02 10^3/uL (0.02-0.10) 01/10/18 15:10 Absolute Nucleated RBC 0.02 10^3/uL (0-0.01) H 01/10/18 15:10 Immature Gran % 0.6 % (0.0-1.1) 01/10/18 15:10 Immature Gran # 0.03 10^3/uL (0.00-0.10) 01/10/18 15:10 PT 18.5 SEC (12.0-15.0) H 01/10/18 15:20 INR 1.53 (0.83-1.16) H 01/10/18 15:20 Sodium 138 mEq/L (135-145) 01/10/18 17:41 Potassium 3.4 mEq/L (3.3-5.0) 01/10/18 17:41 Chloride 101 mEq/L (97-110) 01/10/18 17:41 Carbon Dioxide 29 mEq/l (22-31) 01/10/18 17:41 Anion Gap 8 mEq/L (6-14) 01/10/18 17:41 BUN 19 mg/dL (7-23) 01/10/18 17:41 Creatinine 0.5 mg/dL (0.6-1.0) L 01/10/18 17:41 Estimated GFR > 60 01/10/18 17:41 Glucose 118 mg/dL (70-100) H 01/10/18 17:41 Calcium 7.9 mg/dL (8.5-10.4) L 01/10/18 17:41 Magnesium 1.3 mg/dL (1.6-2.3) L 01/10/18 15:20 Total Bilirubin 8.2 mg/dL (0.1-1.4) H 01/10/18 15:20 Conjugated Bilirubin 1.6 mg/dL (0.0-0.5) H 01/10/18 15:20 Unconjugated Bilirubin 6.6 mg/dL (0.0-1.1) H 01/10/18 15:20 AST 191 IU/L (14-46) H 01/10/18 15:20 ALT 57 IU/L (9-52) H 01/10/18 15:20 Alkaline Phosphatase 89 IU/L (38-126) 01/10/18 15:20 Troponin I 0.014 ng/mL (0.000-0.034) 01/10/18 17:40 Total Protein 7.1 g/dL (6.3-8.2) 01/10/18 15:20 Albumin 4.2 g/dL (3.5-5.0) 01/10/18 15:20 Lipase 158 IU/L (23-300) 01/10/18 15:20 Specimen Hemolysis 146 01/10/18 15:20 Visualized and Interpreted EKG results: Yes EKG additional interpertation: ECG: afib, V rate in 90s, biphasic T waves in precordial leads, Q waves in inferior leads, non-specific intraventricular conduction delay, prolonged qtc (interpreted by me) Assessment & Plan Assessment: 72yo F with history of etoh abuse complicated by cirrhosis who presents with signs and symptoms of etoh withdrawal who is found to be in new onset atrial fibrillation. Plan: #EtOH withdrawal: Last drink on Sunday. No prior h/o withdrawal seizures. - CIWA protocol, thiamine/MV/folate #Atrial fibrillation: Started in ED. Likely precipitated by withdrawal. This is a new diagnosis for her as far as I can tell. She is currently asymptomatic with HR in the 90s and good BP. - Check TTE, TSH, trop, BNP - [id number] (2.2% risk of stroke/yr), HAS-BLED=3 (5.8% risk of major bleed ). Discussed with patient, will hold anticoagulation - Consider electrical cardioversion (has been in afib<48 hours) although unlikely to be helpful with ongoing withdrawal #EtOH abuse: Longest period of sobriety about 90 days. Was in AA but dropped out. - [employer] on resources #Alcoholic hepatitis: Elevated bilirubin and transaminases. DF score of 33.5 indicating possible benefit from steroids. - Pred 40mg qd, check L[place] score day 4 to measure response #Cirrhosis: Due to etoh. She has e/o liver dysfunction with thrombocytopenia, coagulopathy, elevated bili but is overall compensated. #Hyperkalemia: Hemolyzed. Repeat labs look ok. Diet: low Na VTE ppx: SCDs Code: full Dispo: Admit under observation
--- NOTE | 2018-01-10 23:06 | CPEKG ---
Test Reason : OPEN Blood Pressure : / mmHG Vent. Rate : 097 BPM Atrial Rate : 133 BPM P-R Int : 063 ms QRS Dur : 093 ms QT Int : 409 ms P-R-T Axes : 000 -52 -38 degrees QTc Int : 520 ms Atrial fibrillation Inferior infarct, old Prolonged QT interval Confirmed by Kenna Ramos ([id number] on 01/10/2018 11:06:33 PM Referred By: Confirmed By:Kenna Ramos
[2018-01-10] MEDS ORDERED: MAGNESIUM OXIDE 400 MG TAB PO ONE (23:48)
[2018-01-11] MEDS ORDERED: POTASSIUM CL 20 MEQ/15 ML UDCUP PO ONE (07:14)
[2018-01-11] MEDS ORDERED: MAGNESIUM OXIDE 400 MG TAB PO ONE (07:14)
--- NOTE | 2018-01-11 07:38 | HOSPPROG ---
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 Initial report that patient had received lovenox in the ED. Review of chart appears that this was cancelled. Discussed options with the patient regarding anticoagulation as well as risk/ benefits for no treatment, heparin gtt, and tx lovenox as unable to verify patient candidacy for possibility of newer anticoagulant options. Patient amenable to proceed with dose of lovenox. she states she was previously in a double blind study for anticoagulation (either warfarin or newer anticoagulant) 2/2 hx of DVT/PE but was never told which medication she had been given even after study. start with lovenox. continuation vs. changes as per day team. Objective: Vital Signs Temp Pulse Resp BP Pulse Ox 37.1 C 82 16 127/85 H 98 01/11/18 04:00 01/11/18 04:00 01/11/18 04:00 01/11/18 04:00 01/11/18 04:00 Laboratory Results 01/11/18 03:42 01/11/18 03:42 01/10/18 01/11/18 01/12/18 05:59 05:59 05:59 Intake Total 3000 Balance 3000 PT 18.5 SEC (12.0-15.0) H 01/10/18 15:20 INR 1.53 (0.83-1.16) H 01/10/18 15:20 ICD10 Worksheet Patient Problems: Problems Problem Status Onset Alcohol withdrawal Acute Nausea & vomiting Acute New onset atrial fibrillation Acute
[2018-01-11] MEDS ORDERED: ENOXAPARIN 60 MG/0.6 ML SYR SC SCH (09:00)
[2018-01-11] MEDS ORDERED: ENOXAPARIN 40 MG/0.4 ML SYR SC SCH (09:00)
[2018-01-11] MEDS: MULTIVITAMINS 1 EACH TAB PO SCH (09:21)
[2018-01-11] MEDS: FOLIC ACID 1 MG TAB PO SCH (09:21)
[2018-01-11] MEDS: predniSONE 20 MG TAB PO SCH (09:21)
[2018-01-11] MEDS ORDERED: PROTOCOL MAGNESIUM 1 DOSE IV PRN (10:13)
[2018-01-11] MEDS ORDERED: PROTOCOL POTASSIUM 1 DOSE MISC PRN (10:13)
[2018-01-11] MEDS ORDERED: PROTOCOL K PHOSPHATE 1 DOSE IV PRN (10:14)
--- NOTE | 2018-01-11 12:28 | ECHO ---
[email or web address] [address] [address] Main: [phone] Fax: Transthoracic Echocardiogram Name: ALEIDA PEARSON MR#: [id number] Study Date: 01/11/2018 Study Time: 09:59 AM Date of : 1945 Age: 72 year(s) Height: 160 cm (63 in.) Weight: 63.05 kg (139 lb.) BSA: 1.66 m2 Gender: Female Examination: Echo Indication: eval valves, ventricular function Image Quality: Adequate Contrast: Requested by: Lars Manley BP: 130 mmHg/88 mmHg Heart Rate: Rhythm: Atrial fibrillation Indication: eval valves, ventricular function Procedure Staff Lacquer Polisher: Nuzhat Montelongo [facility] Reading Physician: Geoffrey Nettles MD Requesting Provider: Conclusions: Borderline concentric LV hypertrophy. EF is 60 %. No regional wall motion abnormality. Normal RV function. Mild mitral valve leaflet calcification is present. Mild to moderate mitral regurgitation. No mitral stenosis is present. The aortic valve is tri-leaflet. Trivial-mild aortic valve stenosis. There is no significant aortic valve regurgitation. Mild tricuspid regurgitation is present. The pulmonary artery pressure is normal. There is no previous echocardiogram for comparison. Measurements: Chambers Valvular Assessment AV/MV Valvular Assessment TV/PV Normal Normal Normal Name Value Range Name Value Range Name Value Range Ao Jamee (2D): 2.9 cm (1.4 cm-2.6 AV Vmax: 2.19 m/s (1 m/s-1.7 TR Vmax: 2.54 mm/s ( - ) cm) m/s) TR PGmax: 26 mmHg ( - ) IVSd (2D): 1.2 cm (0.6 cm-1.1 AV maxP mmHg ( - ) syst. PAP: 31 mmHg ( - ) cm) AV meanP mmHg ( - ) PV Vmax: 0.79 m/s (0.6 m/s-0.9 LVDd (2D): 4.4 cm (3.9 cm-5.3 PAPO (VTI): 1.1 cm ( - ) m/s) cm) MV E Vmax: 1.33 m/s ( - ) PV PGmax: 2 mmHg ( - ) LVDs (2D): 2.7 cm (2.1 cm-4 MV PHT: 0.073 s ( - ) cm) MVA (PHT): 3.0 s ( - ) LVPWd (2D): 1.1 cm ( - ) LVOTd 1.8 cm 1.8 cm mm LVEF (BP): 60 % (>=55 %) Patient: ALEIDA PEARSON Study Date: 01/11/2018 Page 1 of 2 09:59 AM RVDd(2D): 3.5 cm (1.9 cm-3.8 cmmm) Continued Measurements: Chambers Valvular Assessment AV/MV Valvular Assessment TV/PV Name Value Name Value Name Value LADs: 3.5 cm MV DecTime: 254 m/s CVP (est.): 5 mmHg LADs Lon.7 cm MR ERO: 0.110 cm2 LA Area: 19.0 cm2 MR PISA radius: 5 mm LA Volume: 64 ml MR Reg. Volume: 15 ml LA Volume Index: 38.6 ml/m2 RA Area: 22.0 cm2 Additional Vessels Name Value Ao Ascendin.3 cm Inferior Vena Cava: 1.4 cm Findings: Left Ventricle: Normal size left ventricle. Borderline concentric LV hypertrophy. Normal global systolic LV function. EF is 60 %. No regional wall motion abnormality. Unable to assess diastolic function due to cardiac arrhythmia. Right Ventricle: Normal size right ventricle. Normal RV function. Left Atrium: The left atrium is mildly dilated. Right Atrium: The right atrium is mildly dilated. Mitral Valve: The mitral valve is normal in appearance and function. Mild mitral valve leaflet calcification is present. Mild to moderate mitral regurgitation. No mitral stenosis is present. Aortic Valve: The aortic valve is tri-leaflet. Aortic sclerosis is present. Trivial-mild aortic valve stenosis. There is no significant aortic valve regurgitation. Tricuspid Valve: The tricuspid valve is normal in appearance and function. Mild tricuspid regurgitation is present. The pulmonary artery pressure is normal. Right ventricular systolic pressure measures 31mmHg. Pulmonic Valve: The pulmonic valve is normal in appearance and function. There is no pulmonic regurgitation seen. Aorta: The aorta is normal. Normal size aortic root measuring 2.9 cm. Normal size ascending aorta measuring 3.3 cm. IVC: The IVC is normal sized. Pericardium: No pericardial effusion. No pleural effusion. (No Signature Object) Patient: ALEIDA PEARSON Study Date: 01/11/2018 Page 2 of 2 09:59 AM [id number]
[2018-01-11] MEDS: LORazepam 1 MG TAB PO PRN (14:09)
--- NOTE | 2018-01-11 16:20 | ASMTCMCOM ---
CM Note CM Note Notes: Pts case discussed in tx rounds. Pt is a 72 y/o female admitted for alcohol withdrawals and afib. Pt drinks about 5 glasses of gin nightly. Asad from palliative met w/ pt. Pt will stay overnight and monitor pts kidney functioning. Pt has a therapist and plans on returning to . Pt is interested in returning to [employer]. Pts sister has been saying w/ her. Needs are TBD at this time. CM to follow. Plan: TBD Date Signed: 01/11/2018 04:19 PM Electronically Signed By:KENDALL Lindsay
--- NOTE | 2018-01-11 16:36 | ASMTCMCOM ---
CM Note CM Note Notes: CM spoke to Asad. Pt would like referral made to [facility]. Referral sent. Date Signed: 01/11/2018 04:34 PM Electronically Signed By:KENDALL Lindsay
--- NOTE | 2018-01-11 17:09 | HOSPPROG ---
Hospitalist Progress Note Assessment/Plan: * Acute Etoh hepatitis -on prednisone for high DF -follow LFT, INR * Etoh cirrhosis - continues to drink * Portal vein thrombosis -no need for anticoagulation in cirrhosis * AFib -rate control - PO metoprolol -suspect brought out by Etoh withdrawal -high risk anticoagulation * Etoh withdrawal -CIWA * Electrolyte depletion -replete per protocol Subjective: No new complaints. Objective: Vital Signs Temp Pulse Resp BP Pulse Ox 36.8 C 115 H 19 134/105 H 96 01/11/18 15:26 01/11/18 15:26 01/11/18 15:26 01/11/18 15:26 01/11/18 15:26 01/10/18 01/11/18 01/12/18 05:59 05:59 05:59 Intake Total 600 Output Total 350 Balance 250 PT 18.5 SEC (12.0-15.0) H 01/10/18 15:20 INR 1.53 (0.83-1.16) H 01/10/18 15:20 EKG viewed, my personal interpretation is - afib, anterior TWI ECHO - normal EF Laboratory Tests 01/10/18 01/10/18 01/11/18 15:20 15:20 03:42 INR 1.53 H Potassium 3.2 L Phosphorus 2.3 L Magnesium 1.5 L Total Bilirubin 8.2 H - Physical Exam Constitutional: no apparent distress, appears nourished, not in pain Cardiovascular: regular rate and rhythym, no murmur, rub, or gallop Respiratory: no respiratory distress, no rales or rhonchi, clear to auscultation Gastrointestinal: normoactive bowel sounds, soft, non-tender abdomen, no palpable masses Skin: no rashes or abrasions, no fluctuance, no induration Neurologic: AAOx3, sensation intact bilaterally, other (significant tremor) Psychiatric: interacting appropriately, not anxious, not encephalopathic, thought process linear ICD10 Worksheet Patient Problems: Problems Problem Status Onset Alcohol withdrawal Acute Nausea & vomiting Acute New onset atrial fibrillation Acute
[2018-01-11] MEDS: METOPROLOL TARTRATE 25 MG TAB PO SCH (20:22)
[2018-01-12 04:35] LABS: PLATELET COUNT 64 10^3/uL (150-400)
[2018-01-12 04:40] LABS: INR 1.46 (0.83-1.16); PROTIME(PATIENT) 17.9 SEC (12.0-15.0)
[2018-01-12] MEDS ORDERED: MAGNESIUM SULF 1 GM/DEXTROSE 100 ML IV ONE (07:35)
[2018-01-12] MEDS: METOPROLOL TARTRATE 25 MG TAB PO SCH (08:33)
[2018-01-12] MEDS: MULTIVITAMINS 1 EACH TAB PO SCH (08:33)
[2018-01-12] MEDS: predniSONE 20 MG TAB PO SCH (08:33)
[2018-01-12] MEDS: FOLIC ACID 1 MG TAB PO SCH (08:34)
[2018-01-12] MEDS: LORazepam 1 MG TAB PO PRN (10:35)
[2018-01-12 12:17] VITALS: BP 111/77
--- NOTE | 2018-01-12 14:26 | ASMTCMCOM ---
CM Note CM Note Notes: Patient plan of care reviewed with MD and RN during roounds. She has significant history of ETOH abuse and social anxiety. Has a counseler and was attending AA meetings up until 2 weeks ago when she started to binge drink. Kenna Meier, myself and the patient's sister all met to review what is hopefully a safe discharge plan. Mahogany will discharge to her sisters home and on Sunday call her resources for making a plan. She does have a sponsor through , and a counselor. She has been to [facility] in the past and is encouraged to seek a psychiatrist to help manage her anxiety which is a trigger for self medication with alcohol. I have provider her with 2 known MD in [place] that accept Medicare. CM available should other needs develop. Plan: Home with family support. Date Signed: 01/12/2018 02:26 PM Electronically Signed By:Ngozi Grant RN
--- NOTE | 2018-01-12 15:44 | PDMN ---
Medical Necessity Medical necessity: [facility] [place]:M595 substance related disorders: high risk acute ETOH hepatitis , pt with Afib, ETOH cirrhosis, EOTH W/D on CIWA, N, V, anxiety, further monitoring needed changed to INPT 01/11 for ongoing monitoring BP rising, Tachycardia
--- NOTE | 2018-01-13 04:10 | GDS ---
DISCHARGE DIAGNOSES: 1. Acute alcohol hepatitis. 2. Alcohol cirrhosis. 3. Ongoing alcoholism with ongoing alcohol abuse. 4. Portal vein thrombosis. 5. Atrial fibrillation. 6. Alcohol withdrawal. 7. Electrolyte depletion. HISTORY: The patient is a 72-year-old female who has known alcohol cirrhosis but continues to drink. She presented with acute alcohol hepatitis with a bilirubin greater than 8. She also went into alc ohol withdrawal in the ER and subsequently flipped into an atrial fibrillation with some mild rapid r ates. She was admitted to the hospital. Her discriminant function was high so she was started on st eroids. Her LFTs and INR are now improving. She was counseled at length regarding alcohol cessation . Ultrasound incidentally showed portal vein thrombosis but there was no need to anticoagulate mulugeta l vein thrombosis in the face of cirrhosis. Regarding her atrial fibrillation, she was rate controlled on a beta odalis. I suspect this was bro ught up by her alcohol withdrawal. She did not convert during this hospitalization, but she is adequ ately rate controlled. She is too high risk of anticoagulation given her elevated INR and low platel ets, so decision was made not to consider cardioversion, and she is also not being discharged on anti coagulation. We will give her a daily aspirin. DISCHARGE MEDICATIONS: Please see computerized record for full detailed list. New medications: 1. Prednisolone starting at 40 mg p.o. daily and to continue at this dose for 28 days and then a slo w taper over the next 14 days. 2. Aspirin 81 mg p.o. daily. 3. Propranolol 40 mg p.o. twice daily. ADDITIONAL DISCHARGE INSTRUCTIONS: 1. Call your therapist on Sunday. 2. Recommend outpatient consultation with a psychiatrist or mental health provider who was able to p rescribe medications for your severe underlying anxiety disorder. 3. Recommend discontinuation of alcohol. 4. Follow up at [facility] regarding atrial fibrillation. Greater than 30 minutes' time was spent arranging this discharge. Patient seen and examined by me on the day of discharge. /[id number]/MODL
[2018-01-13] MEDS ORDERED: THIAMINE HCL 100 MG TAB PO SCH (19:04)
== END 2018-01-12 16:20 | disposition home or self-care (01) | DRG 896 ==
LOC: F2W 20:30 → OBSVTOIN 01-11 10:20
PROVIDERS: ADMIT Internal Medicine; ATTEND Internal Medicine
DX: F10.239 Alcohol dependence with withdrawal, unspecified (principal); I81 Portal vein thrombosis; I48.91 Unspecified atrial fibrillation; E86.9 Volume depletion, unspecified; K70.10 Alcoholic hepatitis without ascites; K70.30 Alcoholic cirrhosis of liver without ascites
CPT/HCPCS: 96374; 97161-GP; 97165-GO; G0378; G8978-GP-CJ; G8979-GP-CI; G8987-GO-CJ; G8988-GO-CI; J1650; J2060; J2405; J3475; J7512

== ENCOUNTER 2018-03-08 17:37 | Emergency (ER) | payer OTHER ==
--- NOTE | 2018-03-08 18:03 | EDPHY ---
H & P Stated Complaint: N/V x 3 days. Also reporting constipation. Hx of cirrhosis Time Seen by Provider: 03/08/18 17:54 HPI/ROS: CHIEF COMPLAINT: Nausea and vomiting HISTORY OF PRESENT ILLNESS: The patient is an alcoholic with alcoholic cirrhosis who presents the emergency department with 3 days of nausea and vomiting. The patient reports her last drink was on Sunday. The patient had been off alcohol while on prednisone. The patient does have a history of alcoholic cirrhosis. The patient denies any fever, cough or congestion. She does complain of crampy abdominal pain. She denies diarrhea, melena or hematemesis. REVIEW OF SYSTEMS: A comprehensive 10 point review of systems is otherwise negative aside from elements mentioned in the history of present illness. Source: Patient Exam Limitations: No limitations - Personal History Current Tetanus Diphtheria and Acellular Pertussis (TDAP): No - Medical/Surgical History Hx Asthma: No Hx Chronic Respiratory Disease: No Hx Diabetes: No Hx Cardiac Disease: Yes Hx Renal Disease: No Hx Cirrhosis: Yes Hx Alcoholism: Yes Hx HIV/AIDS: No Hx Splenectomy or Spleen Trauma: No Other PMH: Pelvis Fx, DVT, ETOH Abuse and Liver Problems, dental implants all across top, left wrist fx with plate, - Social History Smoking Status: Never smoked - Physical Exam Exam: General Appearance: Thin female, cachectic, no acute distress Eyes: Pupils equal and round no pallor or injection ENT, Mouth: Mucous membranes moist Respiratory: There are no retractions, lungs are clear to auscultation Cardiovascular: Tachycardic Gastrointestinal: Abdomen is soft and nontender, no masses, bowel sounds normal Neurological: A&O, normal motor function, normal sensory exam, normal cranial nerves, tremulous Skin: Warm and dry, no rashes Musculoskeletal: Neck is supple nontender Extremities: symmetrical, full range of motion Psychiatric: Patient is oriented X 3, there is no agitation Constitutional: Initial Vital Signs Temperature (C) 36.8 C 03/08/18 17:51 Heart Rate 92 03/08/18 17:51 Respiratory Rate 16 03/08/18 17:51 Blood Pressure 189/129 H 03/08/18 17:51 O2 Sat (%) 94 03/08/18 17:51 O2 Delivery Mode Room Air Allergies/Adverse Reactions: No Known Allergies Allergy (Verified 03/08/18 17:49) Home Medications: Medication Instructions Recorded Herbals/Supplements -Info Only 1 ea PO DAILY 01/10/18 Multivitamins [Multivitamin (*)] 1 each PO DAILY 01/10/18 Aspirin EC [Aspirin EC 81 mg (*)] 81 mg PO DAILY #30 tab 01/12/18 Propranolol HCl [Inderal 40mg (*)] 40 mg PO BID #60 tab 01/12/18 Ondansetron Odt [Zofran Odt] 4 mg PO Q4PRN PRN #20 tab 03/08/18 Medical Decision Making ED Course/Re-evaluation: The patient presents to the ED with symptoms consistent with alcohol withdrawal. The patient received 1 mg of Ativan, 4 mg of Zofran and a L of normal saline intravenously. The patient is noted to have chronic abnormalities of her liver function test with a total bilirubin of 8. The patient's lipase is normal. She is noted to have a normal creatinine. The patient received serial examinations in the ED. I re-evaluated her at 7:30 p.m.. Her symptoms of alcohol withdrawal have significantly improved. The patient was offered admission to the hospital in a setting of her alcohol withdrawal however she prefers to go home. She is agreeable for further observation and a po challenge in the ED prior to rendering a disposition decision. Patient is adamant about wanting to go home. She will be given a prescription for Zofran. She is also given a prepack of Ativan. She is instructed she can return to the ED at any time she she reconsider decision not to be admitted. Differential Diagnosis: Differential diagnosis considered includes alcohol withdrawal, gastroenteritis, renal failure, worsening liver disease, peritonitis - Data Points Laboratory Results: Laboratory Results 03/08/18 18:15 03/08/18 18:15 03/08/18 03/08/18 03/08/18 18:15 18:15 18:15 WBC 6.54 10^3/uL 10^3/uL (3.80-9.50) RBC 4.75 10^6/uL 10^6/uL (4.18-5.33) Hgb 15.8 g/dL g/dL (12.6-16.3) Hct 45.1 % % (38.0-47.0) MCV 94.9 fL fL (81.5-99.8) MCH 33.3 pg pg (27.9-34.1) MCHC 35.0 g/dL g/dL (32.4-36.7) RDW 15.6 % H % (11.5-15.2) Plt Count 128 10^3/uL L 10^3/uL (150-400) MPV 10.3 fL fL (8.7-11.7) Neut % (Auto) 73.3 % % (39.3-74.2) Lymph % (Auto) 14.4 % L % (15.0-45.0) [place] % (Auto) 10.9 % % (4.5-13.0) Eos % (Auto) 0.6 % % (0.6-7.6) Baso % (Auto) 0.3 % % (0.3-1.7) Nucleat RBC Rel Count 0.0 % % (0.0-0.2) Absolute Neuts (auto) 4.80 10^3/uL 10^3/uL (1.70-6.50) Absolute Lymphs (auto) 0.94 10^3/uL L 10^3/uL (1.00-3.00) Absolute Monos (auto) 0.71 10^3/uL 10^3/uL (0.30-0.80) Absolute Eos (auto) 0.04 10^3/uL 10^3/uL (0.03-0.40) Absolute Basos (auto) 0.02 10^3/uL 10^3/uL (0.02-0.10) Absolute Nucleated RBC 0.00 10^3/uL 10^3/uL (0-0.01) Immature Gran % 0.5 % % (0.0-1.1) Immature Gran # 0.03 10^3/uL 10^3/uL (0.00-0.10) PT 17.7 SEC H SEC (12.0-15.0) INR 1.44 H (0.83-1.16) Sodium 136 mEq/L mEq/L (135-145) Potassium 3.3 mEq/L L mEq/L (3.5-5.2) Chloride 97 mEq/L mEq/L (97-110) Carbon Dioxide 29 mEq/l mEq/l (22-31) Anion Gap 10 mEq/L mEq/L (6-14) BUN 20 mg/dL mg/dL (7-23) Creatinine 0.6 mg/dL mg/dL (0.6-1.0) Estimated GFR > 60 Glucose 115 mg/dL H mg/dL (70-100) Calcium 9.8 mg/dL mg/dL (8.5-10.4) Total Bilirubin 8.0 mg/dL H mg/dL (0.1-1.4) Conjugated Bilirubin 2.2 mg/dL H mg/dL (0.0-0.5) Unconjugated Bilirubin 5.8 mg/dL H mg/dL (0.0-1.1) AST 111 IU/L H IU/L (14-46) ALT 70 IU/L H IU/L (9-52) Alkaline Phosphatase 92 IU/L IU/L (38-126) Total Protein 6.3 g/dL g/dL (6.3-8.2) Albumin 3.8 g/dL g/dL (3.5-5.0) Lipase 163 IU/L IU/L (23-300) Medications Given: Discontinued Medications Lorazepam (Ativan Injection) 1 mg IVP EDNOW ONE Stop: 03/08/18 18:24 Last Admin: 03/08/18 18:25 Dose: 1 mg Lorazepam (Ativan Injection) 1 mg IVP EDNOW ONE Stop: 03/08/18 19:30 Last Admin: 03/08/18 20:01 Dose: Not Given Ondansetron HCl (Zofran) 4 mg IVP EDNOW ONE Stop: 03/08/18 18:24 Last Admin: 03/08/18 18:25 Dose: 4 mg Departure - Departure Disposition: Home, Routine, Self-Care Clinical Impression: Alcohol withdrawal, Vomiting Condition: Good Instructions: Alcohol Withdrawal (ED) Additional Instructions: 1. Ativan as needed for symptoms of alcohol withdrawal. 2. Zofran as needed for nausea. 3. Please return to the ED for recurrent vomiting, uncontrolled pain or other concerns. 4. Please return to the ED should you reconsider your decision not to be admitted to the hospital this evening. Referrals: Greg Hendricks MD [Primary Care Provider] - As per Instructions
[2018-03-08] MEDS ORDERED: LORazepam 2 MG/ML INJ IVP ONE ×2 (18:23→19:29)
[2018-03-08] MEDS ORDERED: ONDANSETRON 4 MG/2 ML VIAL IVP ONE (18:23)
[2018-03-08 18:28] LABS: PLATELET COUNT 128 10^3/uL (150-400)
[2018-03-08 18:38] LABS: INR 1.44 (0.83-1.16); PROTIME(PATIENT) 17.7 SEC (12.0-15.0)
[2018-03-08] MEDS ORDERED: LORAZEPAM 1 MG PREPACK#4 BTL TAKEHOME ONE (20:46)
[2018-03-08] MEDS ORDERED: ONDANSETRON 4MG PREPACK#2 BTL TAKEHOME ONE (20:46)
[2018-03-08 21:09] VITALS: BP 145/78
== END 2018-03-08 21:09 | disposition home or self-care (01) ==
DX: F10.230 Alcohol dependence with withdrawal, uncomplicated (principal); R11.10 Vomiting, unspecified; K70.30 Alcoholic cirrhosis of liver without ascites
CPT/HCPCS: 96374; 96375; 99284; J2060; J2405

== ENCOUNTER 2018-04-26 08:12 | Inpatient (IN) | payer OTHER ==
[2018-04-26] MEDS ORDERED: IBUPROFEN 600 MG TAB PO ONE (08:30)
[2018-04-26] MEDS ORDERED: HYDROCODONE/APAP 5/325 TAB PO ONE (08:30)
[2018-04-26] MEDS ORDERED: TDAP ADULT 0.5 ML INJ (BOOSTRIX) IM ONE (08:32)
--- NOTE | 2018-04-26 08:32 | EDPHY ---
H & P Time Seen by Provider: 04/26/18 08:21 HPI/ROS: CHIEF COMPLAINT: Left shoulder injury HISTORY OF PRESENT ILLNESS: Slipped yesterday on ice around 10:00 a.m. Landing on her left shoulder. Denies weakness or numbness in left hand, neck or back pain, head injury or loss of consciousness. Says pain is moderate to severe, does not radiate, started just after the fall. Worse with movement. Remainder the complete 10 system ROS is negative. REVIEW OF SYSTEMS: Ongoing toothache, on antibiotics, she took 1 for Tylenol No. 3 at 4:00 a.m. For pain. No abdominal pain or nausea or vomiting. PAST MEDICAL HISTORY: Includes remote history of DVT, left wrist fracture, pelvis fracture. Per H&P dated 01/10/2018 also has a history of alcoholism and cirrhosis. Social history: Nonsmoker General Appearance: Alert and conversant, cooperative. Patient is ambulatory. Not ataxic. Sclera anicteric. No external evidence of ENT trauma. Breath sounds equal, heart regular rate rhythm without murmurs. Abdomen is nontender. Specifically no tenderness over the spleen. Normal left elbow forearm wrist and hand. No midline spinal tenderness. Left proximal forearm abrasion on the skin. Ecchymosis on the proximal left upper arm. Normal motor and sensory and radial pulse in the left hand. Specifically has normal function of motor distribution of the radial nerve. She has normal sensation to light touch over the deltoid on both sides. Emergency Department course/MDM: Tetanus updated, left shoulder x-ray, ibuprofen and [place]. 858: X-ray shows fracture dislocation of the left humerus. Last oral intake was 2 sips of tea around 8:00 a.m. 910: Discussed with Dr. Oswaldo Pepe orthopedics recommends closed reduction. Procedure: Procedural sedation. Indication: Joint reduction A pre-sedation evaluation was completed on the patient at 915 including medical history, allergies and medications, last oral intake, previous experience with sedation, airway assessment, physical examination. Patient is an appropriate candidate for procedural sedation. The risks, benefits, and alternatives of the sedation were discussed with the patient including but not limited to need for airway intervention, cardiovascular complications, ; and consent obtained. The patient is ASA class 1E.Mallampati and 3/3/2 airway assessments were completed. A time out was completed. The patient was sedated with propofol. The patient was monitored with continuous pulse oximetry, site monitor and end tidal CO2. There were no complications and no significant hypoxemia. I remained at the bedside for the sedation. The total time I spent in the procedural sedation was 10 min. At 10:00 a.m. the patient is alert, awake, and back to neurological and respiratory baseline. Procedure: Dislocation reduction. Indication: Dislocation of the left glenohumeral joint. Risks, benefits, alternatives discussed with the patient including but not limited to fracture, nerve or blood vessel injury, and consent obtained. A timeout was completed. The shoulder was reduced in the usual fashion without complications. Post reduction the patient's neurovascular exam is normal. Post reduction x-ray demonstrates reduction of the humerus but the humeral head is still off medially. The procedure was performed by myself. 949: Postreduction x-rays show reduction of the humerus but humeral head is now off medially. 956: Dr. Pepe reviewed, and discussed with his PA Tisha at 1109. Recommended hospitalist admission and NPO. 1118: [place] for Dr. Rosario. Smoking Status: Never smoked Constitutional: Initial Vital Signs Temperature (C) 36.8 C 04/26/18 08:18 Heart Rate 84 04/26/18 08:18 Respiratory Rate 16 04/26/18 08:18 Blood Pressure 150/114 H 04/26/18 08:18 O2 Sat (%) 94 04/26/18 08:18 O2 Delivery Mode Non-Rebreather Mask O2 (L/minute) 15 Allergies/Adverse Reactions: No Known Allergies Allergy (Verified 04/26/18 08:18) Home Medications: Medication Instructions Recorded Herbals/Supplements -Info Only 1 ea PO DAILY 01/10/18 Multivitamins [Multivitamin (*)] 1 each PO DAILY 01/10/18 Aspirin EC [Aspirin EC 81 mg (*)] 81 mg PO DAILY #30 tab 01/12/18 Propranolol HCl [Inderal 40mg (*)] 40 mg PO BID #60 tab 01/12/18 Ondansetron Odt [Zofran Odt] 4 mg PO Q4PRN PRN #20 tab 03/08/18 MDM/Departure - MDM Imaging Results: Imaging Impressions Humerus X-Ray 04/26/18 08:30 Impression: 1. Anterior dislocation of the left humeral head with fractured component of the posterior aspect left humerus remaining in the glenoid fossa. Shoulder X-Ray 04/26/18 08:30 Impression: 1. Anterior dislocation of the left humeral head with fractured component of the posterior aspect left humerus remaining in the glenoid fossa. Shoulder X-Ray 04/26/18 09:32 Impression: 1. Split fracture of the humeral head with anterior component remaining anterior displaced and the humeral shaft now aligned adjacent to the posterior humeral head and greater tuberosity fracture component in the glenoid fossa. Extremity CT 04/26/18 09:59 Impression: 1. Complex proximal left humeral fracture with displaced fracture component anterior humeral head along the anterior inferior aspect of the glenohumeral joint and complex fracture fragments associated with the posterior humeral head and greater tuberosity remaining in the region of the glenohumeral joint adjacent to the humeral shaft. Findings discussed with Brant Moses M.D. at 10:41 hour, 04/26/2018. Medications Given: Discontinued Medications Hydrocodone Bitart/Acetaminophen ([place] 5/325) 1 tab PO EDNOW ONE Stop: 04/26/18 08:31 Last Admin: 04/26/18 08:38 Dose: Not Given Diphtheria/Tetanus/Acell Pertussis (Boostrix) 0.5 ml IM .ONCE ONE Stop: 04/26/18 08:33 Last Admin: 04/26/18 08:37 Dose: 0.5 ml Sodium Chloride (Ns) 1,000 mls @ 0 mls/hr IV ONCE ONE; Wide Open PRN Reason: Protocol Stop: 04/26/18 09:26 Last Admin: 04/26/18 09:25 Dose: 1,000 mls Ibuprofen (Motrin) 600 mg PO EDNOW ONE Stop: 04/26/18 08:31 Last Admin: 04/26/18 08:37 Dose: 600 mg Propofol (Diprivan) 100 mg IVP EDNOW ONE Stop: 04/26/18 09:32 Last Admin: 04/26/18 09:25 Dose: 100 mg - Depart Clinical Impression: Dislocation of left shoulder joint Qualifiers: Encounter type: initial encounter Qualified Code(s): S43.005A - Unspecified dislocation of left shoulder joint, initial encounter Fracture of humeral head, left, closed Qualifiers: Encounter type: initial encounter Qualified Code(s): S42.292A - Other displaced fracture of upper end of left humerus, initial encounter for closed fracture Condition: Good
[2018-04-26] MEDS ORDERED: PROPOFOL 200 MG/20 ML VIAL ONE ×2 (09:07→16:50)
[2018-04-26] MEDS ORDERED: NS 1,000 ML IV ONE (09:25)
[2018-04-26] MEDS ORDERED: PROPOFOL 200 MG/20 ML VIAL IVP ONE (09:31)
[2018-04-26] MEDS ORDERED: NITROGLYCERIN 0.4 MG BTL SL ONE (09:59)
[2018-04-26] MEDS ORDERED: ceFAZolin 2 GM/DEXTROSE 100 ML IV ONE ×2 (11:07→17:30)
[2018-04-26 11:21] LABS: PLATELET COUNT 113 10^3/uL (150-400)
[2018-04-26 11:31] LABS: INR 1.15 (0.83-1.16); PROTIME(PATIENT) 14.9 SEC (12.0-15.0)
[2018-04-26] MEDS: 1/2 NS 1,000 ML IV SCH (11:45)
[2018-04-26] MEDS ORDERED: CARBOXYMETHYLCELLULOSE 1% 0.4 ML DROPERETTE EACHEYE PRN (11:58)
--- NOTE | 2018-04-26 12:34 | PDCONSULT ---
<Karen Hancock S - Last Filed: 04/28/18 23:14> [employer] Expediter Note: SUPERVISING PHYSICIAN: Dr. Oswaldo Pepe. CHIEF COMPLAINT: Left shoulder injury HISTORY OF PRESENT ILLNESS: Patient is a pleasant 72 yo RHD female who presents with left shoulder pain, swelling and bruising following a fall on ice on 04/25/18 at approximately 10am from a standing height. She had pain and swelling but did not feel the need to seek medical attention until today. No h/ o prior injury to the shoulder. Upon presentation to the ED she was found to have a dislocated shoulder which was reduced by Dr. Moses. Following reduction she was placed in a sling and a CT was performed, detailed below. Denies numbness/tingling, worsening change in distal ROM or strength, skin breakthrough. Pain is well controlled at my visit. Denies any other injury from her fall; did not hit her head at time of injury. NPO: Had tea at 08:00am on 04/26/18; 03/27 cup. DNR: Full code discussed with her today. POA: Is her own POA. Patient was scheduled for an EGD where issues concerning anesthesia were discussed by GI with her; she is unsure the nature of the discussion beyond the fact they recommended a different type anesthesia for this procedure. Remainder the complete 10 system ROS is negative. REVIEW OF SYSTEMS: Ongoing tooth abscess, on antibiotics(Amoxicillin for which she has been on for 8 days; is supposed to have a root canal in approximately 1 week). Allergies/Adverse Reactions: No Known Allergies Allergy (Verified 04/26/18 08: 18). Does not like to take Vicodin as it "does not work on my pain." Home Medications: Multivitamin, Amoxicillin (500mg TID), Tylenol 3 prn pain, Celluvisc. PAST MEDICAL HISTORY: Includes remote history of DVT/PE (2004), left wrist fracture ORIF in 2014, pelvis fracture: non-op. Per H&P dated 01/10/2018 also has a history of alcoholism and cirrhosis with withdrawals causing AFib during last hospitalization in December 2017. SOCIAL HISTORY: Nonsmoker; Drinks 5-6 gin drinks per day actively. Has a sister who lives in [place] and a son in [place]. Lives in her own home without assistance. FAMILY HISTORY: Father with melanoma, mother with colon cancer. SURGICAL HISTORY: Left wrist ORIF 2014. No problems with bleeding/anesthesia at time of surgery. PHYSICAL EXAM: GENERAL: No acute distress, cooperative, and pleasant. Able to respond appropriately to questions and commands. HEENT: NC/AT. EOMI. PERRLA. Ears and nares patent without discharge. Oropharynx clear. Icterus noted in b/l eyes. NECK: NTTP, FROM, supple. Negative Lhermitte's and Spurling's. No lymphadenopathy. CV: Non-labored breathing. No diaphoresis. MUSCULOSKELETAL: Fozalized exam of b/l upper extremities: Ecchymosis and 1+ non-pitting edema present to left shoulder; all compartments soft with no skin breakthrough. 1cm abrasion noted to proximal olecranon with no abnormal bleeding/oozing/discharge noted. No edema, erythema, ecchymosis or calor otherwise noted. TTP over left proximal humerus and fracture site, otherwise NTTP throughout. No snuffbox tenderness noted. AROM: limited ROM secondary to severe pain to patient on left shoulder therefore deferred at this time; FROM distally in left elbow/wrist /hand. Able to make a full fist with 5/5 packaging tech strength intact. Deltoid motor and sensory function intact. DNVI b/l with no focal deficits noted. Brisk cap refill b/l in BUE and BLE with calves soft/supple and NTTP b/l with negative bilateral Homans. Compartments soft. SCDs and PETAR hose not yet present on the patient. SKIN: Please see dictation above. No other ecchymosis, erythema, calor, or edema. No other rashes or lesions. NEUROLOGIC: Nonfocal. No deficits. C5 - T1 and L2 - S1 intact. DTRs 2+ x 4 exts with symmetry. No clonus. PSYCH: Alert and oriented x3, appropriate mood and affect. SECONDARY SURVEY: Negative except for as stated above. Initial Vital Signs Temperature (C) 36.8 C 04/26/18 08:18 Heart Rate 84 04/26/18 08:18 Respiratory Rate 16 04/26/18 08:18 Blood Pressure 150/114 H 04/26/18 08:18 O2 Sat (%) 94 04/26/18 08:18 O2 Delivery Mode Non-Rebreather Mask O2 (L/minute) 15 Imaging Results: Imaging Impressions All images personally reviewed by myself and Dr. Pepe in conjunction with radiology readings. Post-reduction radiographs of left shoulder show a fracture to the humeral head with remaining portion of anterior head still displaced. Humeral shaft better aligned in relationship to the glenoid compared to pre-reduction films. CT Performed: A complex proximal left humeral fracture with displaced fracture component anterior humeral head along the anterior inferior aspect of the glenohumeral joint and complex fracture fragments associated with the posterior humeral head and greater tuberosity remaining in the region of the glenohumeral joint adjacent to the humeral shaft is seen. LABS: CRP, ESR and CRP remain wnl at this time. ASSESSMENT: Closed left proximal humerus fracture s/p anterior dislocation. PLAN: At this time patients physical exam findings and x-rays were explained at length to her and she was given the opportunity to ask questions. Recommend operative treatment at this time with ORIF of left proximal humerus. Will schedule surgery for earliest convenience. At this time maintain sling, NWB to LUE, continue AROM/PROM of left wrist hand. Rest, ice and ice massage explainted at length. Will need clearance from hospitalists prior to scheduling surgery. Maintain NPO status at this time. Informed consent regarding surgery including risks, benefits and possible complications explained and consented by Dr. Pepe. Advised to watch for worsening pain, abnormal numbness, tingling, worsening change in heat/color of extremity, cramping in her calves/ankles and to seek immediate medical attention if seen. Patient seen/examined in conjunction with Dr. Pepe. <Oswaldo Pepe - Last Filed: 04/29/18 10:32> [employer] Expediter Note: 72F who suffers from alcoholism and delayed presentation (>24 hours) with L shoulder 4-pt PHFx/dislocation, with persistent anterior dislocation of humeral head. We will proceed with urgent rTSA and associated/indicated procedures, after medical clearance. R/B/A discussed and signed/witnessed informed consent obtained. All questions answered.
[2018-04-26] MEDS ORDERED: FLUMAZENIL 0.5 MG/5 ML MDV IVP PRN (14:33)
[2018-04-26] MEDS ORDERED: ONDANSETRON DISINTEGRATING 4 MG TAB PO PRN (14:34)
[2018-04-26] MEDS ORDERED: ONDANSETRON 4 MG/2 ML VIAL IVP PRN ×2 (14:34→21:09)
[2018-04-26] MEDS ORDERED: ACETAMINOPHEN 325 MG TAB PO PRN (14:34)
[2018-04-26] MEDS ORDERED: HYDROmorphONE/DILAUDID 1 MG/ML INJ IVP PRN (14:34)
[2018-04-26] MEDS ORDERED: LORazepam 2 MG/ML INJ ONE (15:07)
[2018-04-26] MEDS: LORazepam 2 MG/ML INJ IVP PRN ×2 (15:09→15:27)
--- NOTE | 2018-04-26 15:31 | GHP ---
[f rep st] HISTORY AND PHYSICAL DATE OF ADMISSION: 04/26/2018 CHIEF COMPLAINT: Left shoulder pain. HISTORY OF PRESENT ILLNESS: Briefly, the patient is a 72-year-old female with a history of current alcohol use, cirrhosis, remote history of DVT and PE, who slipped on the ice yesterday while walking with her sister. She did not hit her head. She landed on her left arm. She did not have any other injuries. During my interview she was complaining of severe pain in the left upper arm area. It was noted that she had a dislocation of the left glenohumeral joint. The emergency room doctor reduced the humeral head. The humeral head is off medially. The plan is for her to go to surgery today. She denies any chest pain. She denies any shortness of breath. She became lightheaded after falling and had some nausea at that time without vomiting. During my interview her main complaint is arm pain. Her son and sister are at the bedside during my interview. PAST MEDICAL HISTORY: 1. Remote history of a DVT and PE in 2004. 2. Left wrist fracture. 3. Pelvic fracture. 4. Alcoholism. 5. Cirrhosis. 6. Alcoholic hepatitis. 7. Portal vein thrombosis. 8. Atrial fibrillation. PAST SURGICAL HISTORY: 1. Tonsillectomy and adenectomy as a child. 2. Left wrist surgery with plate placement. FAMILY HISTORY: Her mom of complications from colon cancer at age 58. Her father of melanoma at age 66. SOCIAL HISTORY: She does not smoke. She drinks 5 alcoholic drinks a day. She says it is gin. She lives alone. She has one son who is at the bedside. She is currently not in a relationship. She is retired. She used to work for [employer] in [employer] and [employer]. ALLERGIES: No known allergies. HOME MEDICATIONS: 1. Multivitamin 1 tab daily. 2. Herbal supplements 1 tab daily. 3. Amoxicillin 500 mg three times daily. 4. Tylenol with codeine 1 tab q.6 hours. REVIEW OF SYSTEMS: A 10-point review of system was performed, was negative other than pertinent positives in HPI and past medical history. PHYSICAL EXAM: GENERAL: The patient is a 72-year-old female who appears to be in fair health. She actually appears that she might be withdrawing. She is somewhat tremulous during my interview. VITAL SIGNS: Blood pressure is 113/61 , heart rate is 60, respiratory rate is 16, O2 sats on room air 98%, temperature is 36.8 Celsius. EYES: Pupils are equal reactive. EOMs are intact. Her sclerae are jaundiced. ENT: Normal ears. Hearing is intact. Airway is dry. NECK: Trachea is midline. CARDIOVASCULAR: She is in a regular rate and rhythm. She has a soft systolic murmur noted at the left sternal border. CHEST/LUNGS: Normal respiratory effort. ABDOMEN: Soft, nontender. SKIN: Her left arm is in a sling. Her left upper extremity around the biceps area is ecchymotic. She is unable to move that arm due to pain. She has good CMS and pulses in that arm. MUSCULOSKELETAL: Not evaluated. PSYCHIATRIC: She is alert and oriented. She is very anxious. She appears to have normal insight and normal memory but can be slow to answer my questions. DATA REVIEWED: A chemistry panel shows a sodium of 139, potassium 3.7, chloride of 109, glucose of 110, total bilirubin of 2.9, conjugated 0.9, unconjugated bilirubin is 2, AST is 71. CBC: White blood cell count is 4.97, hemoglobin 13.4, hematocrit 39.6, platelet count of 113. Protime is 14.9, INR 1.15. Urinalysis was performed that shows 25-50 red blood cells, 2+ blood, 10- 15 WBCs. She has 2 bilirubin, trace leukocyte esterase. IMAGIN. Shoulder x-ray at 9:30 shows splint fracture of the humeral head with anterior component remaining anterior displaced in the humeral shaft now lying adjacent to the posterior humeral head and greater tuberosity fracture component in the glenoid fossa. 2. Extremity CT shows a complex proximal left humeral fracture with displaced fracture component anterior humeral head along the anterior inferior aspect of the glenohumeral joint and complex fracture fragments associated with the posterior humeral head and greater tuberosity remaining in the region of the glenohumeral joint adjacent to the humeral shaft. I reviewed the patient's care with Dr. Brant Moses emergency room physician. ASSESSMENT/PLAN: 1. Complex proximal humeral fracture: She has been seen and evaluated by our Orthopedics. She will get an ORIF of the left proximal humerus. Currently, she will remain in a sling until surgery is performed. The plan is for that for this evening. 2. Alcohol use: She has a history of withdrawing. Will place her on the CIWA protocol. Unclear if she is going to quit drinking at this time. Will include IV thiamine as well as folic acid. 3. Alcoholic hepatitis: Her bilirubin is actually a bit lower than it has been. Further followup with her PCP. 4. Cirrhosis: This is due to alcohol use. She has etiology of liver dysfunction with ongoing thrombocytopenia. She does not have any coagulopathy noted at this time. 5. Recent tooth infection. Will continue her Amoxicillin. 6. Deep venous thrombosis prophylaxis: Per surgical team. 7. Code status: Full. 8. Length of stay: She will require greater than a 2-midnight stay due to ongoing alcohol use and surgery being performed this evening. /[id number]/MODL MTDD
[2018-04-26] MEDS ORDERED: EPINEPHrine 1 MG/ML INJ ONE (16:03)
[2018-04-26] MEDS ORDERED: BUPIVACAINE 0.25% 30 ML SDV ONE ×2 (16:03→20:53)
[2018-04-26] MEDS ORDERED: BACITRACIN 50,000 UNITS/10 ML SYR IRR ONE (16:03)
[2018-04-26] MEDS ORDERED: DEXAMETHASONE 4 MG/ML VIAL ONE (16:52)
[2018-04-26] MEDS ORDERED: ROCURONIUM 50 MG/5 ML VIAL ONE ×2 (16:52→17:49)
[2018-04-26] MEDS ORDERED: ONDANSETRON 4 MG/2 ML VIAL ONE (16:52)
[2018-04-26] MEDS ORDERED: RANITIDINE 50 MG/2 ML VIAL ONE (16:52)
[2018-04-26] MEDS ORDERED: HYDROmorphONE/DILAUDID 2 MG/ML INJ ONE (16:53)
[2018-04-26] MEDS ORDERED: CEFAZOLIN 2 GM/DEXTROSE/100 ML BAG IV ONE (17:01)
[2018-04-26] MEDS ORDERED: ceFAZolin 1 GM VIAL ONE (19:57)
[2018-04-26] MEDS ORDERED: ROPI/epINEPH/KETOROLAC IU ONE (21:00)
[2018-04-26] MEDS ORDERED: *INFUSION*TRANEX ACID 1,000 MG/NS 100 ML IV ONE (21:00)
[2018-04-26] MEDS ORDERED: HYDROmorphONE/DILAUDID 2 MG/ML INJ IVP PRN (21:09)
[2018-04-26] MEDS ORDERED: fentaNYL 100 MCG/2 ML INJ IVP PRN (21:09)
[2018-04-26] MEDS ORDERED: ALBUTEROL 3 ML DEYVIAL IH PRN (21:09)
[2018-04-26] MEDS ORDERED: NALOXONE HCL 0.4 MG/ML INJ IVP PRN (21:09)
[2018-04-26] MEDS ORDERED: NS 500 ML IV PRN (21:09)
--- NOTE | 2018-04-26 21:13 | PDANEPAE ---
ANE History of Present Illness L reverse total shoulder ANE Past Medical History - Cardiovascular History Hx Hypertension: Yes - Pulmonary History Hx Oxygen in Use at Home: No Hx Sleep Apnea: No - Endocrine History Hx Diabetes: No - Chronic Pain History Chronic Pain: No ANE Review of Systems Review of Systems: ANE Patient History - Allergies Allergies/Adverse Reactions: hydrocodone [From Vicodin] Allergy (Verified 04/26/18 11:55) Vomiting - Home Medications Home Medications: Herbals/Supplements -Info Only 1 ea PO DAILY 01/10/18 [Last Taken 2 Days Ago ~] Multivitamins [Multivitamin (*)] 1 each PO DAILY 01/10/18 [Last Taken 2 Days Ago ~04/24/18] Acetaminophen/Codeine 300/30Mg [Tylenol #3 (*)] 1 each PO Q6 PRN 04/26/18 [Last Taken 04/26/18 04:30] Amoxicillin Trihydrate [Amoxicillin] 500 mg PO TID 04/26/18 [Last Taken 21:00] Carboxymethylcellulose 1% [Refresh Celluvisc (*)] 1 drop EACHEYE DAILY PRN 04/26 [Last Taken 04/25/18] - NPO status NPO Since - Liquids (Date): 04/26/18 NPO Since - Liquids (Time): 08:30 NPO Since - Solids (Date): 04/25/18 NPO Since - Solids (Time): 20:00 - Smoking Hx Smoking Status: Never smoked ANE Labs/Vital Signs - Labs Result Diagrams: 04/26/18 09:10 04/26/18 09:10 - Vital Signs Blood Pressure: 113/61 Heart Rate: 60 Respiratory Rate: 16 O2 Sat (%): 98 Height: 157.48 cm Weight: 67.132 kg ANE Physical Exam - Airway Neck exam: FROM Mallampati Score: Class 2 Mouth exam: normal dental/mouth exam - Pulmonary Pulmonary: clear to auscultation - Cardiovascular Cardiovascular: regular rate and rhythym - ASA Status ASA Status: III (having EtOh withdrawal) ANE Anesthesia Plan Anesthesia Plan: general endotracheal anesthesia Regional Anesthesia: interscalene BP NB
[2018-04-26] MEDS ORDERED: ROPIVACAINE HCL 100 MG/20 ML INJ ONE (21:15)
--- NOTE | 2018-04-26 21:29 | POSTOPPROG ---
Post Op Note Date of Operation: 04/26/18 Surgeon: Oswaldo Pepe Irrigation Equipment Installer: XOCHILT Grayson Anesthesia: GET(General Endotracheal) Pre-op Diagnosis: Left proximal humerus fracture following anterior dislocation. Post-op Diagnosis: Left proximal humerus fracture following anterior dislocation. Indication: Left proximal humerus fracture following anterior dislocation. Procedure: Left reverse total shoulder arthroplasty Inf/Abcess present in the surg proc area at time of surgery?: No Depth: Deep Incisional (Fascial) EBL: 100-500 Complications: None. Specimen(s): None.
[2018-04-26] MEDS ORDERED: LORazepam 2 MG/ML INJ IVP PRN (21:41)
--- NOTE | 2018-04-26 21:44 | POSTANESTH ---
Post Anesthetic Evaluation Cardiovascular Status: Normal, Stable Respiratory Status: Normal, Stable Level of Consciousness/Mental Status: Can Participate in Eval, Alert and Oriented Pain Control: Adequate, Prn Tx Ordered Nausea/Vomiting Control: Adequate, Prn Tx Ordered Complications Possibly Related to Anesthesia: None Noted (Intact Neuro Exam of Left Arm prior to Interscalene Nerve Block)
--- NOTE | 2018-04-26 22:03 | SOAPPROG ---
SOAP Progress Note Assessment/Plan: Assessment/Plan: NWB to SHOSHANAE. Maintain sling and immobilizer. Per hospitalist recc senior [employer] consultant physician: only mechanical prophylaxis at this time for DVT prevention due to h/o cirrhosis/possible bleeding. PETAR silver, SCDs and IS has been ordered. PT/OT: NWB to SHOSHANAE. Only PROM of left hand/wrist/elbow. Maintain sling. Pain medications: per hospitalist recommendations. Objective: Vital Signs Temp Pulse Resp BP Pulse Ox 36.1 C 60 8 L 133/95 H 97 04/26/18 21:26 04/26/18 21:13 04/26/18 21:36 04/26/18 21:36 04/26/18 21:36 PT 14.9 SEC (12.0-15.0) 04/26/18 09:10 INR 1.15 (0.83-1.16) 04/26/18 09:10 ICD10 Worksheet Patient Problems: Problems Problem Status Onset Dislocation of left shoulder joint Acute Fracture of humeral head, left, closed Acute Alcohol withdrawal Acute Nausea & vomiting Acute New onset atrial fibrillation Acute
[2018-04-27] MEDS: THIAMINE HCL 500 MG in NS 100 ML IV SCH ×2 (00:06→09:09)
[2018-04-27] MEDS: 1/2 NS 1,000 ML IV SCH (00:07)
[2018-04-27] MEDS: ceFAZolin 2 GM/DEXTROSE 100 ML IV SCH ×2 (03:55→11:58)
--- NOTE | 2018-04-27 08:35 | GOP ---
[f rep st] OPERATIVE REPORT DATE OF OPERATION: 04/26/2018 SURGEON: Oswaldo Pepe MD ASSOCIATE PROFESSOR OF LAW: Karen Hancock PA-C. ANESTHESIA: General with Dr. Solorzano. Postoperative interscalene block provided. PREOPERATIVE DIAGNOSIS: Closed left shoulder dislocation with a 4-part proximal humerus fracture (head splitting). POSTOPERATIVE DIAGNOSIS: 1. Closed left shoulder dislocation with a 4-part proximal humerus fracture ( head splitting). 2. Left shoulder rotator cuff tear. 3. Left shoulder partial-thickness long head of biceps rupture. PROCEDURE PERFORMED: 1. Left reverse total shoulder arthroplasty. 2. Left shoulder open rotator cuff repair. 3. Left shoulder open biceps subpectoral tenodesis. FINDINGS: Partial head-splitting left 4-part proximal humerus fracture with primary humeral head articular segment, stripped of all soft tissue attachments and dislocated anteriorly and medially, i.e., posterior to the pectoralis and conjoint tendon, medial to the glenohumeral joint, anteromedial to the chest wall and anterior to the subscapularis muscle belly. Upon removal of the humeral head, there was no sign of neurovascular injury within the axilla. Bone quality was consistent with osteoporosis. There was significant comminution throughout the proximal humerus with metaphyseal bone displaced throughout the articular space and axillary recess. The fracture extended through the proximal bicipital groove where the proximal biceps long head was partially ruptured, where it was tented over a sharp spike of fractured humeral cortex. The lesser tuberosity was fractured and comminuted with displacement medially. There was cuff rupture into the superior aspect of the subscapularis at the insertion site as well as a split of the rotator cuff up through the rotator interval. The majority of the supraspinatus was intact with the comminuted and fractured greater tuberosity, displaced posteromedially. There was a small area of articular segment on the greater tuberosity approximately 1 cm in [id number], and of 2 cm in [id number] dimensions. The humeral head and glenoid articular surfaces were without any significant osteoarthritis or cartilage loss. Labrum was intact. There was significant capsular trauma, i.e. throughout the capsule with hemorrhage. SPECIMENS: None. ESTIMATED BLOOD LOSS: 100 cc. INDICATIONS: This is a 72-year-old female who suffers from alcoholism and apparently fell from standing yesterday at some time approximately late morning. The patient was brought into the emergency department today around noon and was found to have the above-listed diagnosis. Due to the longstanding dislocated humeral head segment, i.e., the majority of the humeral head, closed management was not possible. The risks, benefits, and alternatives to surgery were discussed with the patient and family. She provided a signed and witnessed informed consent which was placed in her chart. Please see History and Physical for additional information. DESCRIPTION OF PROCEDURE: The patient was identified in the preoperative holding area and her left shoulder was signed and designated as the operative site. The patient was confirmed to have bilateral lower extremity PETAR hose and SCDs. She was treated with 2 g IV prophylactic cefazolin per protocol. She was taken back to the operating room and placed supine on the OR table and general anesthesia was obtained. She was carefully positioned in the beach chair position with pillows placed behind both knees and both heels and ankles floated with foam egg crates around the heels and ankles. Right upper extremity was wrapped around the wrist, forearm, and elbow with foam egg crate padding and then placed across her lap. Abundant padding using the standard head positioning device was placed around the head with standard positioning device and neck orientation in neutral. Left upper extremity was prepped and draped in the usual sterile manner. Standard deltopectoral interval was used for approach on the surgery. A 10 cm incision was placed directly over the deltopectoral interval after anesthetizing the skin tract with 0.25% Marcaine with epinephrine. All small crossing bleeders were coagulated. Careful dissection was taken down through the fat to the level of the fascia, which was hemorrhagic. The deltopectoral interval was identified. The cephalic vein was mobilized and more easily mobilized laterally with the deltoid. Retractors were placed bluntly and the vein was protected throughout the surgery. Blunt dissection was then used to carry down to the clavipectoral fascia. This was excised and, again, hemorrhagic. All dissection was kept lateral to the conjoined tendon. The biceps tendon was found deep in the groove and there was hemorrhage in this area. With opening of the transverse humeral ligament, the biceps tendon was grasped and found to be draped over a short spike of bone and partially ruptured. Using this, I traced the injury up into the rotator interval. With a Zarate, the split between the greater and lesser tuberosities was carefully mobilized. The superior portion of the subscapularis was torn just medial to the lesser tuberosity with some comminution in this area. The rotator interval was also ruptured and split up toward the coracoid. The majority of the supraspinatus tendon was intact down to the greater tuberosity which was displaced posteriorly. The rotator interval was utilized to enter the joint. The biceps tendon was then tenodesed to the pectoralis major tendon and then cut just superior to the tendon, i.e. was tenodesed in a subpectoral manner. The biceps was then traced up into the shoulder and cut at its origin from the superior glenoid. This was then removed from the shoulder. Irrigation was used to help evacuate some of the hematoma. A #2 Ethibond suture was used to place within the tendinous portion of the subscapularis as well as another suture in the supraspinatus. This was then used to mobilize the proximal humeral fragments. The abundant comminution was carefully removed from the shoulder. All comminuted metaphyseal bone was removed and placed on the back table. With appropriate position of the left upper extremity, the glenoid was visualized. Additional irrigation was used to clear the hematoma throughout the glenoid. Using standard glenoid retractors, 1 posterior and 1 anterior, the glenoid was then prepared for reverse total shoulder. Using the standard drill guide from the DJO set, the drill was placed in the appropriate position. Next, the tap was placed. Reaming was then performed using standard technique. The labrum was excised peripherally. Once this was completed, the base plate was screwed into position with excellent fixation. The locking screws were then placed with a 30 mm screw locked superiorly and inferiorly, and 14 mm screws locked in posteriorly and anteriorly. Excellent fixation was achieved throughout. Once the base plate was completed, the humerus was then addressed. Height was difficult to district associate judge given the extensive fracture and comminution. Please note that not previously stated, there was a segmental piece along the lateral proximal humeral cortex, i.e. inferior to the greater tuberosity, that was attached to soft tissues, but a relatively large segmental piece measuring approximately 3 cm anterior to posterior and 4 cm superior to inferior. This was kept in place and used to facilitate judging height and was eventually repaired at the end of the case. Working through the fracture, the shoulder was extended and adducted and the proximal humerus was delivered through the fracture site. Reaming was then performed with standard humeral technique. The patient was reamed to a size 8 with bone chatter. Given the above, a size 6 broach was utilized. Trial was placed and a trial glenosphere 32 neutral was placed. The shoulder was found to be very tight with this reconstruction and with further inspection of the proximal humerus, it was found that the medial flange, i.e. the medial neck of the humerus was still intact and, therefore, this was carefully resected back with an oscillating saw. Once this height was better achieved and/or created with a more normal head cut height, a trial reconstruction was again performed with a size 6 humeral stem and a 32 neutral socket. A size 32 neutral glenosphere was implanted. The shoulder was reduced and overall reconstruction was found to be appropriate. Again, the trialing was difficult because the stem was very unstable within the fractured proximal humerus. However, this achieved the appropriate overall length offset and tension of the soft tissues. Given the above, the humeral stem needed to be cemented. Prior to implantion, all bony surfaces and components were robustly irrigated with pulsatile lavage. A cement restrictor was placed to the appropriate depth in the humeral canal. A 3rd generation technique was utilized with a standard pressurization gun. The cement was placed, the humeral component was then tapped down into position with 30 degrees of retroversion using standard forearm guide on the implant jig. The humeral stem was then held in position and the cement was allowed to mature and harden. Care was taken to assure that all of the thin suture holes were free of any cement and that the cement was carefully packed around the base of the stem. Once the cement was hardened, a trial reduction was again performed. It was confirmed that the size 32 neutral glenosphere and 32 neutral socket were appropriate. Therefore, the formal 32 neutral glenosphere was placed in the appropriate manner with glenoid retractors in position. A very nice Brandt taper fit was achieved with gentle tapping on the glenosphere. This was then further locked into place with a standard central set screw. Next , a formal 32 neutral poly liner was placed in the humeral socket. Final reduction was performed. A very nice reconstruction was achieved. The patient had forward elevation to at least 130 degrees, external rotation to 45 degrees, internal rotation to her buttock. Given the extensive fracture as well as the patient's history of alcoholism, I chose to perform a relatively robust and anatomic reduction and repair of the bony fragments as well as the lesser and greater tuberosity. With multiple sutures placed through drill holes in the bony segments of the lesser and greater tuberosity, the repair was performed. Please note that prior to performing this, I shelled out the cancellous bone in order to achieve a well- approximated fit of the tuberosities. Additional drill holes were placed through the segmental portion and these were repaired down to the fins of the stem. All bony segments were repaired with the #2 FiberWire sutures. Additional sutures were placed through the fins of the humeral stem for both the greater and lesser tuberosities, and these were carefully reduced and then repaired with multiple #2 FiberWire sutures. The #2 Ethibond sutures that were placed through the tendons were carefully used to further reapproximate and repair the tuberosities and rotator cuff. The torn portion of the superior subscap was repaired with #2 FiberWire as well as the ruptured portion of the rotator interval was also closed and repaired with a #2 FiberWire. The joint was copiously irrigated with lavage prior to closure of the joint via the tuberosity repair. Within the joint space, standard joint cocktail with ropivacaine and Toradol was placed. Additional joint cocktail was placed in the soft tissues of the deltoid and the pectoralis muscles around the interval. Once all aspects of the tuberosities and rotator cuff were repaired, as well as the shoulder was copiously irrigated with sterile saline, the wound was then closed. Please note that the patient did receive TXA prior to tuberosity repair. This was somewhat delayed from the pharmacy and my preoperative request. The patient was with excellent hemostasis and, therefore, no drain was needed. Closure was then performed in layers. 2-0 Vicryl was used to reapproximate the fascial layer of the deltopectoral split. The cephalic vein was inspected and found to be intact and without any injury after the case and prior to closure. 3-0 Monocryl sutures were used to close the deep dermal layer. Lane were used to close the skin. Sterile postoperative surgical dressings were applied. The left upper extremity was placed in a shoulder immobilizer. She was returned to her supine position and then anesthesia service took over to wake her up. DRAINS: None. TOURNIQUET TIME: None. IMPLANTS: DJO small shell reverse total shoulder arthroplasty with a 6 x 100 mm cemented small stem with a size 32 neutral poly liner. Standard RSP glenoid base plate with superior and inferior 30 mm locking screws anterior and posterior 14 mm locking screws. Size 32 neutral RSP glenosphere. COMPLICATIONS: None. DISPOSITION: The patient was extubated and transferred to the PACU in stable condition. /[id number]/MODL MTDD
[2018-04-27] MEDS: FOLIC ACID 1 MG TAB PO SCH (09:10)
[2018-04-27] MEDS: LORazepam 2 MG/ML INJ IVP PRN ×5 (09:17→20:34)
--- NOTE | 2018-04-27 10:41 | PDMN ---
Medical Necessity Medical [place] [facility] [place] [facility] [place]: OP: L reverse TSA, L shoulder open rotator cuff repair, L shoulder open biceps subpectoral tenodesis -- pt fell had L shoulder dislocation with 4 part proximal humerus fx.
[2018-04-27 11:17] LABS: PLATELET COUNT 113 10^3/uL (150-400)
[2018-04-27] MEDS ORDERED: PROTOCOL POTASSIUM 1 DOSE MISC PRN (11:54)
[2018-04-27] MEDS: chlordiazePOXIDE 25 MG CAP PO SCH ×3 (11:58→23:01)
--- NOTE | 2018-04-27 12:09 | HOSPPROG ---
Hospitalist Progress Note Assessment/Plan: #Left shoulder dislocation with proximal humeral fracture, Left shoulder rotator cuff tear, Left Biceps rupture -s/p repair on 04/26 -post op care per ortho -will need SNF -PT/OT -see below for DVT proph #Hx of DVT/PE, 2004, 2009. Hx of Portal Vein thrombosis -She is at high risk of clotting and also for bleed, will start Lovenox 30 daily. Do not increase. Cont SCD's, PETAR's. she does not have any reported varices. She does not have significant thrombocytopenia. She does not have coagulopathy #Acute ETOH WD -CIWA -Thiamine -schedule Librium #Afib, now in sinus -AC per above -monitor closely #Cirrhosis, Liver Disease #Thrombocytopenia #Tooth infection, complete course of Amoxicillin which was started by her Dentist Plan: per above PT/OT Needs SNF DVT proph per above inpatient Subjective: has bilateral hand tremor. in ETOH WD. Pain is well controlled Objective: Vital Signs Temp Pulse Resp BP Pulse Ox 37.0 C 80 16 128/85 H 95 04/27/18 11:38 04/27/18 11:38 04/27/18 11:38 04/27/18 11:38 04/27/18 11:38 Laboratory Results 04/27/18 11:05 04/27/18 11:05 04/26/18 04/27/18 04/28/18 05:59 05:59 05:59 Intake Total 1960 Output Total 250 Balance 1710 PT 14.9 SEC (12.0-15.0) 04/26/18 09:10 INR 1.15 (0.83-1.16) 04/26/18 09:10 - Physical Exam Constitutional: no apparent distress Eyes: PERRL, EOMI Ears, Nose, Mouth, Throat: moist mucous membranes, No hard of hearing Cardiovascular: regular rate and rhythym, no murmur, rub, or gallop, No edema Respiratory: no respiratory distress, no rales or rhonchi, clear to auscultation Gastrointestinal: normoactive bowel sounds, No distension Skin: warm Neurologic: AAOx3 Psychiatric: interacting appropriately, not anxious, not encephalopathic Lymph, Heme, Immunologic: No petechiae ICD10 Worksheet Patient Problems: Problems Problem Status Onset Dislocation of left shoulder joint Acute Fracture of humeral head, left, closed Acute Alcohol withdrawal Acute Nausea & vomiting Acute New onset atrial fibrillation Acute
[2018-04-27] MEDS: ENOXAPARIN 30 MG/0.3 ML SYR SC SCH (12:17)
[2018-04-27] MEDS ORDERED: PROTOCOL MAGNESIUM 1 DOSE IV PRN (12:28)
[2018-04-27] MEDS ORDERED: NS W/ 20 KCl/L 1,000 ML IV SCH (14:30)
[2018-04-27] MEDS ORDERED: MAGNESIUM SULF 2 GM/WATER 50 ML IV ONE (15:10)
--- NOTE | 2018-04-27 17:37 | ASMTCMCOM ---
CM Note CM Note Notes: CM spoke with pt and her sister in the room and left message for pt's son. Pt admitted for shoulder fracture and surgery after fall on the ice. Pt reportedly drinks 5 - 6 gins each night. Order noted for CAGE screening, however, pt too sedated with Ativan to meaningfully respond. PT/OT recommending SNF on discharge and pt agrees (though moderately sedated) and requests placement near her son Michael ) who lives in [facility]. Sister lives in [place]. Referrals sent to various locations near the [place]. CM to follow. D/C Plan: SNF rehab Date Signed: 04/27/2018 05:36 PM Electronically Signed By:Avelina Sheppard
--- NOTE | 2018-04-27 18:02 | SOAPPROG ---
SOAP Progress Note Assessment/Plan: Assessment/Plan: POD #1 Left shoulder reverse TSA NWB to LUE. Maintain sling and NWB precautions at all times. Rest, ice to LUE. Maintain dry dressings. Do not change w/o discuss with our office first. Up with PT/OT with following precautions: NWB to LUE. Only PROM of left hand/ wrist/elbow. Maintain sling. Appreciate their reccs. DVT Prophylaxis: Chemoprophylaxis of Lovenox 30mg SQ begin on POD #1 x 14 days per reccs from hospitalists. PETAR silver. SCDs. IS. Pain Control: Per hospitalist reccs. Dispo: Can D/C once cleared by CM, hospitalists, PT/OT and meeting floor requirements. CM: Patient has a sister who would like her to D/C home to her. F/U in clinic 7-10 days post-operatively to maintain close follow-up and for repeat radiographs. Can schedule with our office for Dr. Pepe at [phone]. Please D/C smoking and no NSAIDs as this may impair fracture healing. Advised to watch abnormal numbness/tingling, worsening change in heat/color of extremity, worsening change in distal ROM or strength, fever, chills, cramping in her calves or ankles and to seek immediate medical attention if seen. Patient/plan discussed and agreed upon with Dr. Pepe. Subjective: Sister in room and patient somnolent but is able to respond appropriately to questions/command. Has been compliant in sling and pain is well controlled at this time. Denies abnormal numbness/tingling, worsening change in pain, worsening change in heat/color of extremity, worsening change in distal ROM or strength, cramping in her calves or ankles, cough, congestion, chest pain, SOB, dyspnea. Is eating liquids but no solid foods yet. Pain well controlled during my visit today. Has been up with PT/OT and has been compliant in NWB to the extremity. Objective: Vital Signs Temp Pulse Resp BP Pulse Ox 36.7 C 97 16 157/100 H 96 04/27/18 16:00 04/27/18 16:00 04/27/18 16:00 04/27/18 16:00 04/27/18 16:00 Laboratory Results 04/27/18 11:05 04/27/18 11:05 04/26/18 04/27/18 04/28/18 05:59 05:59 05:59 Intake Total 1960 500 Output Total 250 Balance 1710 500 PT 14.9 SEC (12.0-15.0) 04/26/18 09:10 INR 1.15 (0.83-1.16) 04/26/18 09:10 AO, NAD, non-labored breathing, no diaphoresis. Afebrile. MS: LUE in sling with no abnormal bleeding/oozing/discharge noted around wound sites. Mild edema noted to left hand. Is able to make a full fist without difficutly. All compartments soft. Deltoid motor and sensory function intact. Able to wiggle fingers without difficulty. PROM of left shoulder deferred at this time. Negative passive stretch b/l. DNVI b/l in BLUE/BLLE with no focal deficits. Able to wiggle toes without difficulty b/l. Calves soft/supple and NTTP b/l with negative Homans and PETAR hose on and SCDs pumping. Brisk cap refill b/l. Imaging: post-operative films show left shoulder reverse TSA in good position/ alignment with hardware in good position/alignment. - Pending Discharge Pending Discharge Within 48 Hours: Yes Pending Discharge Date: 04/29/18 Pending Discharge Time: 11:00 ICD10 Worksheet Patient Problems: Problems Problem Status Onset Dislocation of left shoulder joint Acute Fracture of humeral head, left, closed Acute Alcohol withdrawal Acute Nausea & vomiting Acute New onset atrial fibrillation Acute
[2018-04-28 04:53] LABS: PLATELET COUNT 90 10^3/uL (150-400)
[2018-04-28] MEDS: chlordiazePOXIDE 25 MG CAP PO SCH (09:48)
[2018-04-28] MEDS: FOLIC ACID 1 MG TAB PO SCH (09:49)
[2018-04-28] MEDS: ENOXAPARIN 30 MG/0.3 ML SYR SC SCH ×2 (09:49→09:50)
[2018-04-28] MEDS: THIAMINE HCL 500 MG in NS 100 ML IV SCH (09:49)
[2018-04-28] MEDS: LORazepam 2 MG/ML INJ IVP PRN ×2 (10:02→21:00)
[2018-04-28] MEDS ORDERED: chlordiazePOXIDE 25 MG CAP PO SCH (12:43)
--- NOTE | 2018-04-28 12:46 | HOSPPROG ---
Hospitalist Progress Note Assessment/Plan: #Left shoulder dislocation with proximal humeral fracture, Left shoulder rotator cuff tear, Left Biceps rupture -s/p repair on 04/26 -post op care per ortho -will need SNF -PT/OT -see below for DVT proph #Hx of DVT/PE, 2004, 2009. Hx of Portal Vein thrombosis -She is at high risk of clotting and also for bleed, will start Lovenox 30 daily. Do not increase. Cont SCD's, PETAR's. she does not have any reported varices. She does not have significant thrombocytopenia. She does not have coagulopathy #Acute ETOH WD -CIWA -Thiamine -schedule Librium, decrease to 25mg TID. #Encephalopathy, multifactorial -decreasing Librium today -start IVF #Afib, now in sinus -AC per above -monitor closely #Cirrhosis, Liver Disease #Thrombocytopenia #Hypoxemia, Unclear baseline Will wean down no e/o pneumonia, lung exam reassuring #Tooth infection, complete course of Amoxicillin which was started by her Dentist Plan: per above PT/OT Needs SNF Avoid NSAIDS DVT proph per above inpatient Subjective: somewhat confused, follows commands. denies pain Objective: Vital Signs Temp Pulse Resp BP Pulse Ox 36.3 C 83 18 122/76 H 100 04/28/18 11:42 04/28/18 11:42 04/28/18 11:42 04/28/18 11:42 04/28/18 11:42 Laboratory Results 04/28/18 04:29 04/27/18 18:30 04/27/18 04/28/18 04/29/18 05:59 05:59 05:59 Intake Total 1960 1100 520 Output Total 250 600 Balance 1710 500 520 PT 14.9 SEC (12.0-15.0) 04/26/18 09:10 INR 1.15 (0.83-1.16) 04/26/18 09:10 - Physical Exam Constitutional: no apparent distress, chronically ill appearing Eyes: PERRL, EOMI Ears, Nose, Mouth, Throat: hearing normal, dry mucous membranes Cardiovascular: regular rate and rhythym, No edema Respiratory: no respiratory distress, no rales or rhonchi, clear to auscultation Gastrointestinal: normoactive bowel sounds Skin: warm Neurologic: No AAOx3 Psychiatric: encephalopathic Lymph, Heme, Immunologic: No petechiae ICD10 Worksheet Patient Problems: Problems Problem Status Onset Dislocation of left shoulder joint Acute Fracture of humeral head, left, closed Acute Alcohol withdrawal Acute Nausea & vomiting Acute New onset atrial fibrillation Acute
--- NOTE | 2018-04-28 13:27 | SOAPPROG ---
SOAP Progress Note Assessment/Plan: Assessment: POD 2 s/p L rTSA, RCR and bi-tenodesis for highly comminuted/ complex 4-pt PHFx/dislocation that occurred over 24 hrs prior to presentation, while she was intoxicated (EtOH). Overall, her condition and future outcome is tenuous given her alcoholism and current W/D, with associated multiple medical problems. Plan: Continue close medical care, appreciate team approach. LUE dsgs may be re-applied and reinforced if she continues to try and remove them. Shoulder immobilizer and NWB LUE. Ice and PO analgesics prn edema/pain. Avoid NSAIDs and smoking. Continue enox, TEDs/SCDs as rec'd by IM team for VTE prophylaxis. PT/OT for mobilization OOB/OOC and ADLs; OK to proceed with L hand/wrist/ elbow A/AA/PROM. OK for dispo per Ortho concerns at this time, however EtOH w/ d and associated medical problems will likely require additional days as in-pt. We will follow with you while she is in house. After d/c, she should f/u with me POD 10-14 for new XRs, wound check, staple removal and 1st out-pt evaluation. Please call with any questions. 04/28/18 13:27 Subjective: Denies any current pain, however exam/hx is somewhat complicated by MS changes and sedation. Currently on CIWA protocol including Librium, which per IM note will be tapered today. No other complaints, other than that she doesn't like having her dressings on her LUE and shoulder. Objective: Vital Signs Temp Pulse Resp BP Pulse Ox 36.3 C 83 18 122/76 H 100 04/28/18 11:42 04/28/18 11:42 04/28/18 11:42 04/28/18 11:42 04/28/18 11:42 Laboratory Results 04/28/18 04:29 04/27/18 18:30 04/27/18 04/28/18 04/29/18 05:59 05:59 05:59 Intake Total 1960 1100 520 Output Total 250 600 Balance 1710 500 520 PT 14.9 SEC (12.0-15.0) 04/26/18 09:10 INR 1.15 (0.83-1.16) 04/26/18 09:10 MS delayed, affect flat, exam somewhat difficult 2/2 to current status. During exam, denies any significant pain. LUE edema and ecchy, no calor or erythema and dsgs C/D/I. LT sensation intact over deltoid and able to fire deltoid to attempt abduction. WWP distally with brisk CR and palp rad pulse. DNVI BUE. Both calves NT, no edema, negative Nicolás's. DNVI BLE. Secondary survey negative for any other obvious MSK trauma or injury. ICD10 Worksheet Patient Problems: Problems Problem Status Onset Dislocation of left shoulder joint Acute Fracture of humeral head, left, closed Acute Alcohol withdrawal Acute Nausea & vomiting Acute New onset atrial fibrillation Acute
[2018-04-28] MEDS ORDERED: chlordiazePOXIDE 25 MG CAP PO PRN (14:40)
[2018-04-28] MEDS: NS 1,000 ML IV SCH (15:35)
[2018-04-28] MEDS: ACETAMINOPHEN 325 MG TAB PO PRN ×2 (15:36→18:43)
[2018-04-28] MEDS: oxyCODONE IR 5 MG TAB PO PRN (18:43)
[2018-04-29] MEDS: NS 1,000 ML IV SCH (04:00)
[2018-04-29 04:49] LABS: PLATELET COUNT 65 10^3/uL (150-400)
[2018-04-29] MEDS: LORazepam 2 MG/ML INJ IVP PRN (05:25)
[2018-04-29] MEDS ORDERED: MAGNESIUM SULF 1 GM/DEXTROSE 100 ML IV ONE (07:41)
--- NOTE | 2018-04-29 08:50 | SOAPPROG ---
SOAP Progress Note Assessment/Plan: Assessment/Plan: POD #3 Left shoulder reverse TSA NWB to LUE. Maintain sling and NWB precautions at all times. Rest, ice to LUE. Maintain dry dressings. Do not change w/o discuss with our office first. Patient appears to have removed dry dressing and RN replaced. Continue to reinforce and maintain dry dressing. Up with PT/OT with following precautions: NWB to LUE. Only PROM of left hand/ wrist/elbow. Maintain sling. Appreciate their reccs. DVT Prophylaxis: Continue chemoprophylaxis of Lovenox 30mg SQ x 14 days per reccs from hospitalists. PETAR silver. SCDs. IS. Pain Control: Per hospitalist reccs. Dispo: Can D/C once cleared by CM, hospitalists, PT/OT and meeting floor requirements. CM: Patient has a sister who would like her to D/C home to her. F/U in clinic 7-10 days post-operatively to maintain close follow-up and for repeat radiographs. Can schedule with our office for Dr. Pepe at . Please D/C smoking and no NSAIDs as this may impair fracture healing. Advised to watch abnormal numbness/tingling, worsening change in heat/color of extremity, worsening change in distal ROM or strength, fever, chills, cramping in her calves or ankles and to seek immediate medical attention if seen. Patient/plan discussed and agreed upon with Dr. Pepe. 04/29/18 08:50 Subjective: Subjective: Alone in room and patient again somnolent but is able to respond appropriately to questions/command. Has been compliant in sling and pain is well controlled at this time. Dry dressing is intact from RN yesterday; per nursing report she removed her own dressing and new dressing was placed 04/28/18. Denies abnormal numbness/tingling, worsening change in pain, worsening change in heat/color of extremity, worsening change in distal ROM or strength, cramping in her calves or ankles, cough, congestion, chest pain, SOB, dyspnea. Is eating and drinking well. Pain well controlled during my visit today. Has been up with PT/OT and has been compliant in NWB to the extremity. Objective: Vital Signs Temp Pulse Resp BP Pulse Ox 36.7 C 76 14 147/90 H 100 04/29/18 08:00 04/29/18 08:00 04/29/18 08:00 04/29/18 08:00 04/29/18 08:00 Laboratory Results 04/29/18 04:31 04/27/18 18:30 04/28/18 04/29/18 04/30/18 05:59 05:59 05:59 Intake Total 1100 1630 Output Total 600 400 300 Balance 500 1230 -300 PT 14.9 SEC (12.0-15.0) 04/26/18 09:10 INR 1.15 (0.83-1.16) 04/26/18 09:10 AO, NAD, non-labored breathing, no diaphoresis. Afebrile. MS: LUE in sling with no abnormal bleeding/oozing/discharge noted around wound sites. Dry dressing intact. Mild edema noted to left hand. Is able to make a full fist without difficutly. All compartments soft. Deltoid motor and sensory function intact. Able to wiggle fingers without difficulty. PROM of left shoulder deferred at this time. Negative passive stretch b/l. DNVI b/l in BLUE/BLLE with no focal deficits. Able to wiggle toes without difficulty b/l. Calves soft/supple and NTTP b/l with negative Homans and PETAR hose on and SCDs pumping. Brisk cap refill b/l. - Pending Discharge Pending Discharge Within 48 Hours: Yes Pending Discharge Date: 05/01/18 Pending Discharge Time: 11:00 ICD10 Worksheet Patient Problems: Problems Problem Status Onset Dislocation of left shoulder joint Acute Fracture of humeral head, left, closed Acute Alcohol withdrawal Acute Nausea & vomiting Acute New onset atrial fibrillation Acute
[2018-04-29] MEDS: FOLIC ACID 1 MG TAB PO SCH (08:57)
[2018-04-29] MEDS: oxyCODONE IR 5 MG TAB PO PRN ×2 (08:57→16:59)
[2018-04-29] MEDS: THIAMINE HCL 100 MG TAB PO SCH (08:57)
[2018-04-29] MEDS: ACETAMINOPHEN 325 MG TAB PO PRN ×2 (08:58→16:59)
[2018-04-29] MEDS: ENOXAPARIN 30 MG/0.3 ML SYR SC SCH (08:58)
--- NOTE | 2018-04-29 16:10 | HOSPPROG ---
Hospitalist Progress Note Assessment/Plan: 72- year old female admitted after suffering a fall with resulted humerus fracture, biceps tendon rupture and rotator cuff tear. Now post op from. #Left shoulder dislocation with proximal humeral fracture, Left shoulder rotator cuff tear, Left Biceps rupture. -s/p repair on 04/26 -post op care per ortho -will need SNF -PT/OT -see below for DVT proph #Hx of DVT/PE, 2004, 2009. Hx of Portal Vein thrombosis -She is at high risk of clotting and also for bleed, will start Lovenox 30 daily. Do not increase. Cont SCD's, PETAR's. she does not have any reported varices. She does not have significant thrombocytopenia. She does not have coagulopathy #Acute ETOH WD -CIWA -Thiamine -no longer taking librium. will dc as she does not appear to be actively withdrawing. #Encephalopathy, multifactorial -stop librium #Afib, now in sinus -AC per above -monitor closely #Cirrhosis, Liver Disease #Thrombocytopenia #Hypoxemia, Unclear baseline Will wean down no e/o pneumonia, lung exam reassuring #Tooth infection, complete course of Amoxicillin which was started by her Dentist Subjective: no pain, fairly lethargic today. no acute complaints. Objective: Vital Signs Temp Pulse Resp BP Pulse Ox 36.7 C 78 14 127/82 H 99 04/29/18 15:40 04/29/18 15:40 04/29/18 15:40 04/29/18 15:40 04/29/18 15:40 Laboratory Results 04/29/18 04:31 04/27/18 18:30 04/28/18 04/29/18 04/30/18 05:59 05:59 05:59 Intake Total 1100 1630 422 Output Total 600 400 300 Balance 500 1230 122 PT 14.9 SEC (12.0-15.0) 04/26/18 09:10 INR 1.15 (0.83-1.16) 04/26/18 09:10 - Physical Exam Constitutional: no apparent distress, appears nourished, not in pain Eyes: PERRL, anicteric sclera, EOMI Ears, Nose, Mouth, Throat: moist mucous membranes, hearing normal, ears appear normal, no oral mucosal ulcers Cardiovascular: regular rate and rhythym, no murmur, rub, or gallop Respiratory: no respiratory distress, no rales or rhonchi, clear to auscultation Gastrointestinal: normoactive bowel sounds, soft, non-tender abdomen, no palpable masses Genitourinary: no bladder fullness, no bladder tenderness, no renal bruits Skin: no rashes or abrasions, no fluctuance, no induration Musculoskeletal: full muscle strength, no muscle tenderness, normal joint ROM Neurologic: AAOx3, sensation intact bilaterally, other (oriented when prompted. No focal deficits. lethargic. ) Psychiatric: interacting appropriately, not anxious, not encephalopathic, thought process linear Lymph, Heme, Immunologic: no cervical LAD, no supraclavicular LAD ICD10 Worksheet Patient Problems: Problems Problem Status Onset Dislocation of left shoulder joint Acute Fracture of humeral head, left, closed Acute Alcohol withdrawal Acute Nausea & vomiting Acute New onset atrial fibrillation Acute
--- NOTE | 2018-04-29 16:13 | ASMTCMCOM ---
TORIBIO Note CM Note Notes: This note was not saved in [employer] yesterday 04/28/18 by TORIBIO F Pless: CM call to follow up with son Michael, , to attempt to discuss what facility to move forward with. Voicemail answered, CM left a message asking for a call back to [phone]. CM to follow. Date Signed: 04/29/2018 04:12 PM Electronically Signed By:ALFREDO Lee
--- NOTE | 2018-04-29 16:15 | ASMTCMCOM ---
CM Note CM Note Notes: [facility] SN[facility] accept, Xiomara with [facility] will pursue insurance auth. Pt son Michael contacted for d/c planning. D/c plan of care: [facility] Date Signed: 04/29/2018 04:14 PM Electronically Signed By:ALFREDO Lee
[2018-04-30] MEDS: oxyCODONE IR 5 MG TAB PO PRN ×2 (04:05→15:50)
[2018-04-30] MEDS: ACETAMINOPHEN 325 MG TAB PO PRN (04:06)
[2018-04-30] MEDS ORDERED: MAGNESIUM SULF 2 GM/WATER 50 ML IV ONE (07:30)
[2018-04-30] MEDS: ENOXAPARIN 30 MG/0.3 ML SYR SC SCH (08:19)
[2018-04-30] MEDS: FOLIC ACID 1 MG TAB PO SCH (09:48)
[2018-04-30] MEDS: THIAMINE HCL 100 MG TAB PO SCH (09:49)
--- NOTE | 2018-04-30 12:23 | PDIAF ---
- Diagnosis Code Status: Full Code - Medication Management Discharge Medications: electronically signed and located in the Home Medication List. - Orders Services needed: Registered Nurse, Physical Therapy, Occupational Therapy Diet Recommendation: no restrictions on diet Diet Texture: Regular Texture Diet Additional Instructions: Regarding Orthopedic Instructions ([facility]): Dr. Oswaldo Pepe No weight bearing to left upper extremity. Maintain your sling and non-weight bearing precautions at all times. Rest, ice to injury site and left arm. Maintain dry dressings. Do not change without discussion with our office first. Maintain exercises shown by PT/OT: Only passive range of motion of left hand/ wrist/elbow. DVT Prophylaxis: Continue Rx of Lovenox 30mg for 14 days as prescribed by hospitalists. Continue PETAR hose for 14 days. Follow up in clinic in 7-10 days post-operatively to maintain close follow-up and for repeat radiographs. Can schedule with our office for Dr. Pepe at [phone]. Please do not smoke and please no NSAIDs as this may impair fracture healing. Advised to watch abnormal numbness/tingling, worsening change in heat/color of extremity, worsening change in range of motion or strength, fever, chills, cramping in your calves or ankles, cough, congestion, chest pain, shortness of breath and seek immediate medical attention if seen. - Labs/Radiology CBC w/diff Date: 05/02/18 CMP Date: 05/02/18 - Follow Up Care Current Providers and Referrals: Oswaldo Pepe MD [Medical Doctor] - As per Instructions Greg Hendricks MD [Primary Care Provider] - As per Instructions
[2018-04-30] MEDS ORDERED: POLYETHYLENE GLYCOL 3350 17 GM PKT PO PRN (13:13)
[2018-04-30] MEDS ORDERED: BISACODYL 10 MG SUPP PR PRN (13:13)
[2018-04-30] MEDS ORDERED: LACTULOSE 20 GM/30 ML UDCUP PO PRN (13:13)
[2018-04-30] MEDS ORDERED: MAGNESIUM HYDROXIDE 30 ML UDCUP PO PRN (13:13)
[2018-04-30] MEDS ORDERED: SENNOSIDES/DOCUSATE SODIUM TAB PO SCH (13:15)
[2018-04-30] MEDS ORDERED: ONDANSETRON DISINTEGRATING 4 MG TAB PO PRN (13:58)
--- NOTE | 2018-04-30 14:53 | SOAPPROG ---
SOAP Progress Note Assessment/Plan: Assessment:POD#4 s/p left reverse shoulder TSA. Pt. stable from ortho standpoint to be transferred to SNF. Plan: Pt. was accepted at [facility] where she will be discharged to later today. Please follow all discharge instructions as written and given to pt up on discharge. Continue to be NWB with no ROM of shoulder. Continue sling at all times. Continue ice prn S: Pt. was very sleepy, but seemed to be saying that that pain in her right shoulder was adequately controlled. She said that she had no increase in pain since she was seen yesterday. She denied numbness or tingling of the fingers. No weakness of the fingers. O: Pt. drowsy but able to answer questions. In NAD, sleeping upon my arrival. Respirations are easy and unlabored. Her sensation to the fingers is intact to BUE's, she can move all fingers on both hands, skin is warm, dry and pink, cap. refill is brisk. I am able to feel her fire her deltoid muscle without testing any ROM of the shoulder. Her sling remains in place. Her dressing is clean and dry with no surrounding redness or warmth. 04/30/18 14:48 Objective: Vital Signs Temp Pulse Resp BP Pulse Ox 36.7 C 83 18 109/75 100 04/30/18 11:39 04/30/18 11:39 04/30/18 11:39 04/30/18 11:39 04/30/18 11:39 Laboratory Results 04/29/18 04:31 04/27/18 18:30 04/29/18 04/30/18 05/01/18 05:59 05:59 05:59 Intake Total 1630 1570 Output Total 400 1350 200 Balance 1230 220 -200 PT 14.9 SEC (12.0-15.0) 04/26/18 09:10 INR 1.15 (0.83-1.16) 04/26/18 09:10 ICD10 Worksheet Patient Problems: Problems Problem Status Onset Dislocation of left shoulder joint Acute Fracture of humeral head, left, closed Acute Alcohol withdrawal Acute Nausea & vomiting Acute New onset atrial fibrillation Acute
--- NOTE | 2018-04-30 15:15 | ASMTLACE ---
SARAH Length of stay for Answers: 4-6 days current admission Acuity / Level of Answers: Yes Care: Did the patient have an inpatient admission? Comorbidities - select Answers: Other Notes: Hx of DVT; AFib; HTN all that apply # of Emergency department Answers: 3-4 visits in the last 6 months Social determinants Answers: History of substance abuse (ETOH, street drugs, prescription drugs, etc.) Score: 14 Date Signed: 04/30/2018 03:13 PM Electronically Signed By:ALFREDO Lee
--- NOTE | 2018-04-30 15:16 | ASMTCMCOM ---
CM Note CM Note Notes: Pt medically stable for d/c to [facility], they have the insurance authorization according to Xiomara with . Orders sent in Allscripts. Xiomara scheduled wc transport for 1700. Pt son Michael updated. ANAIS Vidal called report. Date Signed: 04/30/2018 03:16 PM Electronically Signed By:ALFREDO Lee
[2018-04-30 15:51] VITALS: BP 135/92
--- NOTE | 2018-04-30 17:41 | PDDCSUM ---
Discharge Summary Discharge Summary: Discharge diagnosis Etoh withdrawal fall right humerus fracture afib cirrhosis thrombocytopenia left shoulder dislocation biceps tendon rupture rotator cuff tear etoh abuse encephalopathy the patient is a 72 year old female with etoh dependence, afib, hx of DVT/PE who was admitted after a fall and suffering a left humerus fracture, biceps tendon rupture and rotator cuff tear. she was taken to the OR and underwent a reverse TSA. she has a heavy alcohol history and so was treated for alcohol withdrawal with scheduled librium, which was able to be tapered off. she also completed a course of antibiotics for a tooth infection, which was started prior to her arrival at [facility]. she recovered well, but was still too weak to go home and so was discharged to SNF to complete rehab over 30 minutes were spent on the discharge of this patient.
--- NOTE | 2018-05-01 15:11 | ASDISCHSUM ---
Discharge Information Plan Status:SNF Medically Cleared to Leave: Discharge Date:04/30/2018 04:43 PM CM D/C Disposition: ADT D/C [facility] Projected Discharge Date:04/29/2018 11:00 AM Transportation at D/C: Discharge Delay Reason: Follow-Up Date:04/29/2018 11:00 AM Discharge Slot: Final Diagnosis: Placement Information Referral Type:*Half-Way/SNF Referral ID:[id number] Provider Name:[facility] Address 1:[address] Address 2: City:[place] Selection Factors: State:[place] Patient Contact Information Contact Name:DARREL Relationship:Sister Address: City: [facility] Phone: State/Zip Code: Email: Financial Information Financial Class:Medicare Advantage Plans Primary Plan Desc:[facility] ADVANTAGE PLANS Primary Plan Number:[id number] Secondary Plan Desc: Secondary Plan Number: Assessment Information [facility] CM Progress Note CM Note CM Note Notes: CM spoke with pt and her sister in the room and left message for pt's son. Pt admitted for shoulder fracture and surgery after fall on the ice. Pt reportedly drinks 5 - 6 gins each night. Order noted for CAGE screening, however, pt too sedated with Ativan to meaningfully respond. PT/OT recommending SNF on discharge and pt agrees (though moderately sedated) and requests placement near her son Michael ) who lives in [facility]. Sister lives in [place]. Referrals sent to various locations near the [place]. CM to follow. D/C Plan: SNF rehab Date Signed: 04/27/2018 05:36 PM Electronically Signed By:Avelina Sheppard [facility] Progress Note CM Note TORIBIO Note Notes: This note was not saved in [employer] yesterday 04/28/18 by TORIBIO Thomas: TORIBIO call to follow up with delaney Rodriguez, , to attempt to discuss what facility to move forward with. Voicemail answered, TORIBIO left a message asking for a call back to [phone]. TORIBIO to follow. Date Signed: 04/29/2018 04:12 PM Electronically Signed By:ALFREDO Lee LACE LACE Length of stay for Answers: 4-6 days current admission Acuity / Level of Answers: Yes Care: Did the patient have an inpatient admission? Comorbidities - select Answers: Other Notes: Hx of DVT; AFib; HTN all that apply # of Emergency department Answers: 3-4 visits in the last 6 months Social determinants Answers: History of substance abuse (ETOH, street drugs, prescription drugs, etc.) Score: 14 Date Signed: 04/30/2018 03:13 PM Electronically Signed By:ALFREDO Lee [facility] TORIBIO Progress Note TORIBIO Dnaiel CM Note Notes: [facility] SN[facility] is [facility] accept, Xiomara with will pursue insurance auth. Pt delaney Rodriguez contacted for d/c planning. D/c plan of care: [facility] Date Signed: 04/29/2018 04:14 PM Electronically Signed By:ALFREDO Lee [facility] CM Progress Note CM Note CM Note Notes: Pt medically stable for d/c to [facility], they have the insurance authorization according to Xiomara with [facility]. Orders sent in [employer]. Xiomara scheduled transport for 1699. Pt son Michael updated. ANAIS Vidal called report. Date Signed: 04/30/2018 03:16 PM Electronically Signed By:ALFREDO Lee Intervention Information
== END 2018-04-30 16:43 | DRG 483 ==
LOC: F3N 22:32
PROVIDERS: ADMIT Family Medicine; ATTEND Family Medicine
PROC: 0RSKXZZ Reposition Left Shoulder Joint, External Approach (ICD-10-PCS; 2018-04-26)
PROC: 0RRK00Z Replacement of Left Shoulder Joint with Reverse Ball and Socket Synthetic Substitute, Open Approach (ICD-10-PCS; principal; 2018-04-26 16:00)
DX: S42.292A Other displaced fracture of upper end of left humerus, initial encounter for closed fracture (principal); F10.239 Alcohol dependence with withdrawal, unspecified; G93.40 Encephalopathy, unspecified; S43.005A Unspecified dislocation of left shoulder joint, initial encounter; S46.112A Strain of muscle, fascia and tendon of long head of biceps, left arm, initial encounter; S46.012A Strain of muscle(s) and tendon(s) of the rotator cuff of left shoulder, initial encounter; W00.0XXA Fall on same level due to ice and snow, initial encounter; K04.7 Periapical abscess without sinus; K70.30 Alcoholic cirrhosis of liver without ascites; E86.9 Volume depletion, unspecified; I48.91 Unspecified atrial fibrillation; D69.6 Thrombocytopenia, unspecified; I10 Essential (primary) hypertension; Z86.718 Personal history of other venous thrombosis and embolism; Z86.711 Personal history of pulmonary embolism; Z80.0 Family history of malignant neoplasm of digestive organs
CPT/HCPCS: 97116-GP; 97162-GP; 97166-GO; 97530-GO; 97530-GP; 97535-GO; A4565; C1713; G0515-GO; J0171; J0690; J1100; J1170; J1650; J1885; J2060; J2405; J2704; J2780; J2795; J3411; J3475